=== PATIENT | female | born 1970 | race Caucasian/White ===

== ENCOUNTER 2023-04-15 08:45 | Outpatient (CLI) | payer OTHER, SELFPAY ==
--- OUTSIDE RECORDS SUMMARY | 2023-04-16 11:33 | XMS_ITS ---
Author Name Unknown Organization [facility] Address [address] [place] [address] Care Team Providers Care It Network Administrator Name Role Phone Unavailable Unavailable Unavailable Surgery Details Not on file Complications Check Surgery Details section. Procedure Estimated Blood Loss Check Surgery Details section. Procedure Findings Check Surgery Details section. Procedure Specimens Taken Check Surgery Details section.
--- OUTSIDE RECORDS SUMMARY | 2023-04-16 11:33 | XMS_ITS | Encounter Summary ---
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 [address] [place] [address] [facility] Referral ID Status Reason Start Date Expiration Date Visits Re quested Visits Authorized [id number] Closed 12/20/2022 12/20/2023 1 1 Encounter Details Date Type Department Care Team (Latest Contact Info) Description 01/21/2023 8:00 AM CDT Procedure visit Division of Pain Medicine in [place], [place] [address] [place] [phone] Bhupendra Alvarez M.D. [address] [place] [phone] Yesenia Dunbar, R.N. 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 No 09/02/2022 Within the last year, have y ou been humiliated or emotionally abused in other ways by your partner or ex-partner? No Within the last year, have y ou been kicked, hit, slapped, or otherwise physically hurt by your partner or ex-partner? No 09/02/2022 Within the last year, have y ou been raped or forced to have any kind of sexual activity by your partner or ex-partner? No 09/02/2022 Social Connection and Isolat ion Panel [NHANES] Answer Date Recorded In a typical week, how many times do you talk on the phone with family, friends, or neighbors? More than three times a week 12/17/2021 How often do you get togethe r with friends or relatives? Once a week 12/17/2021 How often do you attend chur or cheondoism services? 1 to 4 times per year 12/17/2021 Do you belong to any clubs o r organizations such as roman catholic groups, unions, fraternal or athletic groups, or school groups? Yes 12/17/2021 How often do you attend meet ings of the clubs or organizations you belong to? More than 4 times per year 12/17/2021 Are you , , di vorced, , never , or living with a partner? 12/17/2021 AUDIT-C Answer Date Recorded Q1: How often do you have a drink containing alc ohol? Never 12/17/2021 Average Number of Drinks Not on file 022 Frequency of Binge Drinking Not on file 11/23 Overall Financial Resource Strain (CARDIA) Answe r Date Recorded How hard is it for you to pa y for the very basics like food, housing, medical care, and heating? Not hard at all 01/21/2023 [facility] of Occupat ional Health - Occupational Stress Questionnaire Answer Date Recorded Do you feel stress - tense, restless, nervous, or anxious, or unable to sleep at night because your mind is troubled all the time - these days? To some extent 12/17/2021 Exercise Vital Sign Answer Date Recorde d On average, how many days pe r week do you engage in moderate to strenuous exercise (like a brisk walk)? 5 days 01/21/2023 On average, how many minutes do you engage in exercise at this level? 20 min 01/21/2023 Hunger Vital Sign Answer Date Recorded Within the past 12 months, y ou worried that your food would run out before you got the money to buy more. Never true 01/22/20 23 Within the past 12 months, t he food you bought just didn't last and you didn't have money to get more. Never true 01/21/2023 PRAPARE - Transportation Answer Date Re corded In the past 12 months, has l ack of transportation kept you from medical appointments or from getting medications? No 12/24 In the past 12 months, has l ack of transportation kept you from meetings, work, or from getting things needed for daily living? No 01/21/2023 Nutrition Answer Date Recorded Nutrition: EVOO Fat Source Yes 01/21 On average, how many serving s of fruits and vegetables do you eat per day (serving size is equal to 1 cup or approximately the size of a tennis ball)? 0-2 01/21/2023 Dental Answer Date Recorded Dental: Regular Dentist Yes 12/18/19 Employment Answer Date Recorded Employment status Temporarily disabled Housing Stability Answer Date Recorded What is your living situation today? I have a [facility] place to live 01/21/2023 Education Answer Date Recorded What is the highest level of school you have completed or the highest degree you have received? Some college, no degree 12/17/2021 Sex and Gender Information Value Date Recorded Sex Assigned at Female 01/16/2018 8:35 AM CDT Gender Identity Female 01/16/2018 8:35 AM CDT Sexual Orientation Straight 01/16/2018 8: 35 AM CDT documented as of this encounter Last Filed Vital Signs Vital Sign Reading Time Taken Comments Blood Pressure 133/91 01/21/2023 8:20 AM CDT Pulse 89 01/21/2023 8:20 AM CDT Temperature 36.5 ??C (97.7 ??F) 01/21/2023 8:20 AM CD T Respiratory Rate - - Oxygen Saturation - - Inhaled Oxygen Concentration - - Weight - - Height - - Body Mass Index - - documented in this encounter Progress Notes * Yesenia Dunbar R.N. - 01/21/2023 8:00 AM CDT PAIN CLINIC PROVIDER: Dr. Escobar PRIMARY IDENTIFIED PAIN AREA FOR NEUROMODULATION: bilateral feet neuropathic pain PERTINENT SURGICAL HISTORY: Suma Damon has a past surgical history that includes Nevro Trial Stimulator Spinal Cord (Posterior, 05/30/2022); and Nevro Implant Stimulator Spinal Cord (N/A, 07/29/2022). PAIN ASSESSMENT Patient reports that chronic pain is typically Pain 0-10: 10/10. With stimulation currently pain is Pain 0-10: 0/10. FUNCTIONAL GOALS 1) Sleep 7 hours without pain interference (before stim 5 hours interrupted multiple times by her pain) - 6 hours with no sleep interruptions due to pain 2) Sit 45 minutes without pain interference (before stim, 0 minutes) - doesn't make it spasm - not an issue 3) Stand 30 minutes without pain interference (before stim, 0 minutes) - 30 minutes 4) Walk 30 minutes without pain interference (before stim, 0 minutes) - 20 minutes 5) Recovery time of 60 minutes after activity (before stim, never recover) - 15 minutes EVALUATION OF IMPLANT Patient notes a 95% improvement in pain, and 95% improvement in functionality. Mr. Damon requested recommendations on when to determine a programming change would be needed. He noted her pain flares, and he stated pain is still significantly better when increased. They were unable to provide a percent of improvement during the flares as Mrs. Damon has become normalized tothe reduction of pain. She stated this makes it difficult to evaluate pain when flared. When it flares, it lasts for a few days before seeing improvement on the same program setting. It was reviewed that chronic pain can have multiple factors that increase the pain and cause pain flares (weather changes, activity levels, anxiety, etc.), and chronic pain ebbs and flows. With stimulation, this is expected as it is not a cure to remove all pain. It was reviewed that 50% improvement is a success. In the future, it was recommended to consider overall percent relief when compared to before stimulation when a flare occurs. If the decrease of pain is significant (50% or less) and lasts more than 4 days, Mrs. Damon should contact the Pain Clinic for recommendations. and Mrs. Damon verbalized understanding and agreement with the above plan. PROGRAMMING Ok ELVIN Diaz healthcare representative was present for analysis and impedance check of neurostimulator. Programming and remote use were reviewed with patient. The following changes were made to patient's stimulation programming: Minor changes to fine tune programming for future recommendations. Parameters addressed: *Amplitude - no *Electrode Array - no *Pulse Width - no *Rate - no New programming was reviewed with patient. Mrs. Damon left today's appointment P3, 3L. It was reviewed that it would take an extreme event (fall, vehicle accident) for the leads to migrate. Mrs. Damon requested information on getting massages. Ok recommended to stay above the vertical incision and below the horizontal incision. An opportunity for questions was provided, and Mrs. Damon and Mr. Damon denied having any at thistime. FOLLOW UP Mrs. Damno will contact the Pain Clinic with future questions or concerns. Disposition/Recommendation: self-care appropriate at this time. The following references were used: nursing clinical judgement VISIT OUTCOME: Learner(s): Suma Damon Readiness to learn: Accepting Methods used for education: Explanation Learner(s) response: Patient/caregiver able to teach back If there are any ongoing questions or concerns Suma Damon will call the Pain Clinic RN coordinators at [phone]. Reviewed with Dr. Escobar. 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
--- OUTSIDE RECORDS SUMMARY | 2023-04-16 11:33 | XMS_ITS | Referral Summary ---
Author Name Unknown Organization [facility] Address [address] [place] [id number] Care Team Providers Care Manager Utility Name Role Phone Unavailable Primary Care Provider Unavailabl e Source Comments Patient records contain information from all sites at [facility]. For routine questions regarding patient records, call [phone] during business hours, M-F 8:00 AM - 5:00 PM Central Time. Record requests for emergency care only can be directed to [phone] at any time.[facility] Encounters Date Type Department Care Team Description 01/21/2023 8:00 AM CDT Procedure visit Division of Pain Medicine in [place], [place] [address] [place] [phone] Bhupendra Alvarez M.D. Yesenai Dunbar, R.N. 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 from Last 3 Months Allergies Active Allergy Reactions Criticality Noted Date Comments Gadolinium-Containing Contrast Media GI intolerance 12/24/2000 Extreme diarrhea Medications Medication Sig Dispensed Refills Start Date End Date Status atenolol (TENORMIN) 50 mg tablet Take 50 mg by mouth daily. 3 11/04/2017 Active lisinopril (PRINIVIL,ZESTRIL) 10 mg tablet lisinopril 10 mg tablet 0 Active calcium carbonate-vitamin D3 500 mg-10 mcg (400 unit) tablet Take by mouth. 0 Active fish oil 1,000 mg capsule Take 1,000 mg by mouth daily. 0 Active glucosamine sulfate (GLUCOSAMINE) 500 mg capsule Take 1,000 mg by mouth daily. 0 Active magnesium oxide (MAG-OX) 400 mg (241.3 mg magnesium) tablet Take by mouth every morning before breakfast. 0 Active cyanocobalamin (VITAMIN B12) 1,000 mcg tablet Take 1,000 mcg by mouth daily. 0 Active multivitamin (MULTIPLE VITAMINS ORAL) 0 Active UNABLE TO FIND Ubiquinal - 100mg 0 Act eugenio UNABLE TO FIND Adri - 500mg 0 Active gabapentin (NEURONTIN) 600 mg tablet gabapentin 600 mg tablet TAKE 1 TABLET BY MOUTH 4 TIMES A DAY 0 Active DULoxetine (CYMBALTA) [address] capsule Take 60 mg by mouth daily. Takes 90 mg total once per day 0 Active DULoxetine (CYMBALTA) [address] capsule Take 30 mg by mouth daily. 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 1 to 4 times per year 12/17/2021 Do you belong to any clubs o r organizations such as yarsanism groups, unions, fraternal or athletic groups, or [...] and heating? Not hard at all 01/21/2023 [facility] of Occupat ional Health - Occupational Stress [...] your living situation today? I have a [facility] place to live 01/21/2023 Education Answer Date Recorded What is the highest level of school you have completed or the highest degree you have received? Some college, no degree 12/17/2021 Sex and Gender Information Value Date Recorded Sex Assigned at Female 01/16/2018 8:35 AM CDT Gender Identity Female 01/16/2018 8:35 AM CDT Sexual Orientation Straight 01/16/2018 8: 35 AM CDT Last Filed Vital Signs Vital Sign Reading Time Taken Comments Blood Pressure 133/91 01/21/2023 8:20 AM CDT Pulse 89 01/21/2023 8:20 AM CDT Temperature 36.5 ??C (97.7 ??F) 01/21/2023 8:20 AM CD T Respiratory Rate 21 07/29/2022 12:40 PM CDT Oxygen Saturation 94% 07/29/2022 12:40 PM CDT Inhaled Oxygen Concentration - - Weight 93 kg (205 lb 0.4 oz) 08/08/2022 12:47 PM CDT Height 167.7 cm (5' 6.02) 08/08/2022 12:47 PM C DT Body Mass Index 33.07 08/08/2022 12:47 PM CDT Plan of Treatment Not on file Medical Devices Implanted Type Area Explosive Ordnance Handler Device Identifier Shelf Expiration Date Model / Serial / Lot Ipg Kit Implanted:Qty : 1 on 07/29/2022 by Ciaran Escobar M.D. at [facility] Misc Other Right: Back Nevro 01/22/2025 [id number] / / [id number] Kt Lead Trl Spnl 70x5 - Sna - [id number] Implanted:Qty : 1 on 07/29/2022 by Ciaran Escobar M.D. at [facility] Spinal Cord Stimulator N/A: Back Nevro 04/23/2025 [id number] / NA / [id number] Kt Neurostm Swf-L 2.3 - Sna - [id number] Implanted:Qty : 1 on 07/29/2022 by Ciaran Escobar M.D. at [facility] Spine Implant N/A: Back Nevro 03/23/2025 [id number] / NA / [id number] Explanted Type Area Explosive Ordnance Handler Device Identifier Shelf Expiration Date Model / Serial / Lot Kt Nrv Stm Ld Perq 50x5 - Sna - [id number] Implanted:Qty : 1 on 05/30/2022 by Sumi Christine M.D. at [facility] Explanted:Qty : 1 on 06/06/2022 by Svetlana Holley, R.N. Spinal Cord Stimulator Posterio r: Back Nevro 01/21/2025 [id number] / NA / [id number]
--- OUTSIDE RECORDS SUMMARY | 2023-04-16 11:33 | XMS_ITS | Clinical Summary ---
Author Name Unknown Organization [facility] Address [address] [place] [address] Care Team Providers Care Police Inspector Name Role Phone Unavailable Primary Care Provider Unavailabl e Source Comments Patient records contain information from all sites at [facility]. For routine questions regarding patient records, call [phone] during business hours, M-F 8:00 AM - 5:00 PM Central Time. 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 Lundstrom, Laura B, R.N. 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 from Last 3 Months Family History Medical History Relation Name Comments Diabetes Brother piyush cone Arthritis Father ravi cone Colon polyps Father ravi cone Osteoporosis Father ravi cone Hypertension Mother emre cone Skin cancer Mother emre cone Diabetes Sister 1 aneesh jeremie Diabetes Sister 2 lisle shocker Diabetes Sister 3 jay cone Skin cancer Sister 3 jay cone Relation Name Status Comments Brother piyush cone Father ravi cone Mother emre cone Sister 1 aneesh jeremie Sister 2 lisle shocker Sister 3 jay cone Social History Tobacco Use Types Packs/Day Years [...] How often do you attend chur or yarsani services? 1 to 4 times per year 12/17/2021 Do you belong to any clubs o r organizations such as zoroastrian groups, unions, fraternal or athletic groups, or [...] and heating? Not hard at all 01/21/2023 [facility] of Occupat ional Health - Occupational Stress [...] your living situation today? I have a [facility] place to live 01/21/2023 Education Answer [...] 08/08/2022 12:47 PM CDT Plan of Treatment Health Maintenance Due Date Last Done Comments CT Colonography 1972 Cervical Cancer Screening 1972 Cologuard 1972 Colonoscopy 1972 Colorectal Cancer Screening 1972 FIT 1972 HIV Screening 1972 Hepatitis B Vaccines (1 of 3 - 3-dose series) 1972 Hepatitis C Screening 1972 Lipid (Cholesterol) Screening 1972 Mammogram 1972 Creatinine Level (Kidney Function Test) 01/15/2019 01/15/2018 Potassium Level 01/15/2019 01/15/2018 Sodium Level 01/15/2019 01/15/2018 DTaP,Tdap,and Td Vaccines (1 - Tdap) 01/04/2021 01/03/2021, 03/24/2005 Fasting Glucose for Diabetes Screening 01/15/2021 01/15/2018, 01/15/2018 Zoster Vaccines (1 of 2) 2022 COVID-19 Vaccine (2 - 2022-2 4 season) 2022 05/29/2020 Influenza Vaccine (#1) 2022 01/03/2021 Depression Screening (Annual PHQ-2) 03/24/2023 Pneumococcal vaccine (0-64 years) Aged Out No longer eligible b ased on patient's age to complete this topic Medical Devices Implanted Type Area Digital Editor Device Identifier Shelf Expiration Date Model / Serial / Lot Ipg Kit Implanted:Qty : 1 on 07/29/2022 by Ciaran Escobar M.D. at [facility] Other Right: Back Nevro 01/22/2025 [id number] / / [id number] Kt Lead Trl Spnl 70x5 - Sna - [id number] Implanted:Qty : 1 on 07/29/2022 by Ciaran Escobar M.D. at [facility] Spinal Cord Stimulator N/A: Back Nevro 04/23/2025 [id number] / NA / [id number] Kt Neurostm Swf-L 2.3 - Sna - [id number] Implanted:Qty : 1 on 07/29/2022 by Ciaran Escobar M.D. at [facility] Spine Implant N/A: Back Nevro 03/23/2025 [id number] / NA / [id number] Explanted Type Area Digital Editor Device Identifier Shelf Expiration Date Model / Serial / Lot Kt Nrv Stm Ld Perq 50x5 - Sna - [id number] Implanted:Qty : 1 on 05/30/2022 by Sumi Christine M.D. at [facility] Explanted:Qty : 1 on 06/06/2022 by Svetlana Holley, RStephanN. Spinal Cord Stimulator Posterio r: Back Nevro 01/21/2025 [id number] / NA / [id number]
--- OUTSIDE RECORDS SUMMARY | 2023-04-16 11:34 | XMS_ITS | Encounter Summary ---
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 [facility] Referral ID Status Reason Start Date Expiration Date Visits Re quested Visits Authorized [id number] Closed 07/02/2022 07/02/2023 1 1 Encounter Details Date Type Department Care Team (Latest Contact Info) Description 08/08/2022 1:00 PM CDT Procedure visit Division of Pain Medicine in [place], [place] [address] [place] [address] Cam Bolaños M.D. Lundstrom, Laura B, R.N. Polyneuropathy Due [...] afraid of your partner or ex-partner? No 12/17/2021 Within the last year, have y ou been humiliated or emotionally abused in other ways by your partner or ex-partner? No Within the last year, have y ou been kicked, hit, slapped, or otherwise physically hurt by your partner or ex-partner? No 12/17/2021 Within the last year, have y ou been raped or forced to have any kind of sexual activity by your partner or ex-partner? No 12/17/2021 Social Connection and Isolat ion Panel [NHANES] Answer Date Recorded In a typical week, how many times do you talk on the phone with family, friends, or neighbors? More than three times a week 12/17/2021 How often do you get togethe r with friends or relatives? Once a week 12/17/2021 How often do you attend chur or zoroastrian services? 1 to 4 times per year 12/17/2021 Do you belong to any clubs o r organizations such as amish groups, unions, fraternal or athletic groups, or [...] care, and heating? Not hard at all 12/17/2021 [facility] of Occupat ional Health - Occupational Stress [...] to strenuous exercise (like a brisk walk)? 4 days 12/17/2021 On average, how many minutes do you engage in exercise at this level? 30 min 12/17/2021 Hunger Vital Sign Answer Date Recorded Within the past 12 months, y ou worried that your food would run out before you got the money to buy more. Never true 12/18/19 Within the past 12 months, t he food you bought just didn't last and you didn't have money to get more. Never true 12/17/2021 PRAPARE - Transportation Answer Date Re corded In the past 12 months, has l ack of transportation kept you from medical appointments or from getting medications? No 11/23 In the past 12 months, has l ack of transportation kept you from meetings, work, or from getting things needed for daily living? No 12/17/2021 Housing Stability Vital Sign Answer Ayo e Recorded In the last 12 months, was t here a time when you were not able to pay the mortgage or rent on time? No 12/17/2021 In the last 12 months, how many places have you lived? 1 12/17/2021 In the last 12 months, was t here a time when you did not have a steady place to sleep or slept in a chcf (including now)? No 12/17/2021 Nutrition Answer Date Recorded Nutrition: EVOO Fat Source Yes 12/17 On average, how many serving s of fruits and vegetables do you eat per day (serving size is equal to 1 cup or approximately the size of a tennis ball)? 4-5 12/17/2021 Dental Answer Date Recorded Dental: Regular Dentist Yes 12/18/19 Employment Answer Date Recorded Employment status Unemployed/not in th e paid workforce and NOT seeking employment 12/17/2021 Education Answer Date Recorded What is the [...] Sign Reading Time Taken Comments Blood Pressure 121/77 08/08/2022 12:47 PM CDT Pulse 80 08/08/2022 12:47 PM CDT Temperature - - Respiratory Rate - - Oxygen Saturation - - Inhaled Oxygen Concentration - - Weight 93 kg (205 lb 0.4 oz) 08/08/2022 12:47 PM CDT Height 167.7 cm (5' 6.02) 08/08/2022 12:47 PM C DT Body Mass Index 33.07 08/08/2022 12:47 PM CDT documented in this encounter Progress Notes * Yesenia Dunbar, R.N. - 08/08/2022 1:00 PM CDT PAIN CLINIC PROVIDER: Dr. Escobar PRIMARY IDENTIFIED PAIN AREA FOR NEUROMODULATION: bilateral feet neuropathic pain PERTINENT SURGICAL HISTORY: Suma Damon has a past surgical history that includes Nevro Trial Stimulator Spinal Cord (Posterior, 05/30/2022); and Nevro Implant Stimulator Spinal Cord (N/A, 07/29/2022). Suma Damon presents days post op: 10 and 14 after implant of neurostimulator. PAIN ASSESSMENT Patient reports that chronic pain is typically Pain 0-10: 10/10. With stimulation currently pain is Pain 0-10: 5/10. Patient reports that procedural pain is Pain 0-10: 0/10. FUNCTIONAL GOALS 1) Sleep 7 hours without pain interference (before stim 5 hours interrupted multiple times by her pain) - overall she gets 4-6 hours of sleep with 2-3 interruptions due to pain 2) Sit 45 minutes without pain interference (before stim, 0 minutes) - 10 minutes 3) Stand 30 minutes without pain interference (before stim, 0 minutes) - 5 minutes 4) Walk 30 minutes without pain interference (before stim, 0 minutes) - 5 minutes 5) Recovery time of 60 minutes after activity (before stim, never recover) - 60 minutes EVALUATION OF IMPLANT Patient notes a 30% improvement in pain, and 10% improvement in functionality. It was stated the results from the x-ray completed on 08/08/22 reported lead migration. Elvin Quiros, explained the current location of the leads can still be programmed to target the chronic pain. He reported the leads moved on 07/31/22, which corresponds to when the patient lost relief per the patient. PROGRAMMING ELVIN Quiros motor vehicle field representative was present for analysis and impedance check of neurostimulator. Programming, charging and remote use were reviewed with patient. Programming adjustments: Electrode array was adjusted of the programs to better target the chronic pain. Parameters addressed: *Amplitude - no *Electrode Array - yes *Pulse Width - no *Rate - no Mrs. Damon left today's appointment on P1, 4L. A programming schedule will be provided to the patient through a portal message. Mrs. Damon will follow the instructions and provide updates as needed. Weeks 2-6 after implant: Activity Restrictions You may drive, lift up to 10 pounds, and raise your arms above your head Continue to refrain from bending and twisting, and vigorous activities (examples: weight lifting, biking, running, sexual activity, etc.) Infection Prevention Signs/symptoms: worsening pain, redness, swelling, temperature greater than 100.4F, yellow/green ormalodorous drainage from incisions If any of the above are identified, call the Pain Clinic Nurse Contact Number or ???Anesthesia PainOutpatient Adult Doctor on-call?? via the [facility] Research Archaeologist (phone: [phone]) INCISION ASSESSMENT Upon inspection dressing was intact with no drainage. No signs of infection including redness, warmth, swelling or purulent drainage noted at this time. PROCEDURE Upon inspection, generator pocket and spinal incision were noted to be clean, dry and intact with surgical glue approximating margins. Steri-Strips were removed without incident. Monocryl tag sutureswere trimmed and retracted completely below the surface of the skin. RN reviewed that dressing changes are no longer needed. Mrs. Damon requested a PT order as she desires to work on her gait. This request will be provided to a provider. If it is ordered, she requests a paper copy to be mailed to her home address so that she can complete locally. An opportunity for questions was provided, and they were answered to the best of my ability. Mrs. Damon will contact the Pain Clinic for future questions and concerns. FOLLOW UP RN will follow up with patient 6 weeks post implant in a phone call. Disposition/Recommendation: self-care appropriate at this time. The following references were used: nursing clinical judgement VISIT OUTCOME: Learner(s): Suma Damon Readiness to learn: Accepting Methods used for education: Explanation Learner(s) response: Patient/caregiver able to teach back If there are any ongoing questions or concerns Suma Damon will call the Pain Clinic RN coordinators at [phone]. Reviewed with Dr. Escobar. 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
--- OUTSIDE RECORDS SUMMARY | 2023-04-16 11:34 | XMS_ITS | Encounter Summary ---
Author Name Unknown Organization [facility] Address [address] [place] [address] Care Team Providers Care Senior Coldfusion Developer Name Role Phone Unavailable Primary Care Provider Unavailabl e Encounter Details Date Type Department Care Team (Late st Contact Info) Description 07/29/2022 Orders Only Division of Pain Medicine in [place], [place] [address] [place] [address] Cam Bolaños M.D. Social History Tobacco Use Types Packs/Day Years [...] 12/17/2021 How often do you attend chur ch or hinduism services? 1 to 4 times per year 12/17/2021 Do you belong to any clubs o r organizations such as restorationist groups, unions, fraternal or athletic groups, or [...] and heating? Not hard at all 12/17/2021 [facility] of Occupat ional Health - Occupational Stress [...] money to buy more. Never true 12/18/19 22 Within the past 12 months, t he [...] place to sleep or slept in a snf (including now)? No 12/17/2021 Nutrition Answer Date [...] AM CDT documented as of this encounter Plan of Treatment Not on file documented as of this encounter Visit Diagnoses Not on filedocumented in this encounter
--- OUTSIDE RECORDS SUMMARY | 2023-04-16 11:34 | XMS_ITS | Encounter Summary ---
Author Name Unknown Organization [facility] Address [address] [place] [address] Care Team Providers Care Log Clerk Name Role Phone Unavailable Primary Care Provider Unavailabl e Reason for Visit * Reason Onset Date Comments Elijah [facility] update 08/30/2022 Encounter Details Date Type Department Care Team (Latest Contact Info) Description 08/30/2022 Clinical Communication Division of Pain Medicine in [place], [place] [address] [place] [address] Ciaran Escobar M.D. [address] [place] [address] Kurtisro [facility] update Social History Tobacco Use Types Packs/Day Years [...] often do you attend chur ch or orthodox services? 1 to 4 times per year 12/17/2021 Do you belong to any clubs o r organizations such as buddhist groups, unions, fraternal or athletic groups, or [...] and heating? Not hard at all 12/17/2021 [facility] [place] of Occupat ional Health - Occupational Stress [...] place to sleep or slept in a skilled nursing (including now)? No 12/17/2021 Nutrition Answer Date [...] AM CDT documented as of this encounter Miscellaneous Notes * Telephone Encounter - Suma Cochran, R.N. - 08/30/2022 8:32 AM CDT Received the following update via secure email from Elijah Quiros: I spoke with Jaclynel patient Samy PAZ 1970, below are the details: -Patient on P1, 7L -Reporting a noticeable, but marginal, improvement in pain -Patient has reduced cannabis dose to sleep which is an improvement -Advised patient to switch to P2 and follow the below schedule (please send to patient at your earliest convenience) -Patient on G6, P2, 4L Schedule: *Do not work past pain relief. When you notice an increase in relief, discontinue schedule and reach out to [place]. 08/29 - P2, 4L 09/03 - P2, 5L 09/08 - P2, 6L 09/13 - P2, 7L 09/18 - Report back on response to P2 documented in this encounter Plan of Treatment Not on file documented as of this encounter Visit Diagnoses Not on filedocumented in this encounter
--- OUTSIDE RECORDS SUMMARY | 2023-04-16 11:34 | XMS_ITS | Encounter Summary ---
Author Name Unknown Organization [facility] Address [address] [place] [address] Care Team Providers Care Planer Stone Name Role Phone Unavailable Primary Care Provider Unavailabl e Encounter Details Date Type Department Care Team (Late st Contact Info) Description 01/14/2023 Documentation Division of Pain Medicine in [place], [place] [address] [place] [address] Yesenia Dunbar, R.N. Social History Tobacco Use Types Packs/Day Years [...] often do you attend chur ch or episcopal services? 1 to 4 times per year 12/17/2021 Do you belong to any clubs o r organizations such as mormonism groups, unions, fraternal or athletic groups, or [...] care, and heating? Not hard at all 09/02/2022 [facility] of Occupat ional [facility] - Occupational Stress Questionnaire Answer Date Recorded [...] the money to buy more. Never true 09/03/19 23 Within the past 12 months, t he food you bought just didn't last and you didn't have money to get more. Never true 09/02/2022 PRAPARE - Transportation Answer Date Re corded In the past 12 months, has l ack of transportation kept you from medical appointments or from getting medications? No 08/22 In the past 12 months, has l ack of transportation kept you from meetings, work, or from getting things needed for daily living? No 09/02/2022 Nutrition Answer Date Recorded Nutrition: EVOO Fat Source Yes 12/17 On average, how many serving s of fruits and vegetables do you eat per day (serving size is equal to 1 cup or approximately the size of a tennis ball)? 4-5 12/17/2021 Dental Answer Date Recorded Dental: Regular Dentist Yes 12/18/19 Employment Answer Date Recorded Employment status Unemployed/not in e paid workforce and NOT seeking employment 12/17/2021 Housing Stability Answer Date Recorded What is your living situation today? [facility] to [facility] 09/02/2022 Education Answer Date Recorded What is the highest level of school you have completed or the highest degree you have received? Some college, no degree 12/17/2021 Sex and Gender Information Value Date Recorded Sex Assigned at Female 01/16/2018 8:35 AM CDT Gender Identity Female 01/16/2018 8:35 AM CDT Sexual Orientation Straight 01/16/2018 8: 35 AM CDT documented as of this encounter Progress Notes * Yesenia Dunbar, R.N. - 01/14/2023 9:52 AM CDT Email from Elijah Quiros, after phone contact with Mrs. Damon on 01/10/23: I spoke with Luz patient Samy PAZ 74, below are the details: Patient on G7, P3, 1L Reporting that she had great relief G7, P3, 4L for 3 weeks before losing it. Patient was previously instructed to reduce stimulation to evaluate for STS 3L did offer an increase in relief but this relief was short lived. As she continued to reduce stimulation she did not note an improvement. Explained to patient that she may need a setting in between 3 and 4 light on P3 in order to offer abalance with her nervous system, however, nothing is currently programmed in. Patient is returning to clinic on 01/21 at which point we will give her intermediary settings and also a lower bipole on the lead, which is also not currently available. Patient will return to G7, P3, 3L and hold for 72 hours to evaluate for an improvement in pain. documented in this encounter Plan of Treatment Not on file documented as of this encounter Visit Diagnoses Not on filedocumented in this encounter
--- OUTSIDE RECORDS SUMMARY | 2023-04-16 11:34 | XMS_ITS | Encounter Summary ---
Author Name Unknown Organization [facility] Address [address] [place] [id number] Care Team Providers Care Day Spa Manager Name Role Phone Unavailable Primary Care Provider Unavailabl e Reason for Visit * Auth/Cert (Routine) Specialty Diagnoses / Procedures Referred By Valerie t Referred To Contact Diagnoses Neuralgia and neuritis, unspecified intractable pain Procedures WI IMPL NEUROSTIM ELEC PERC EPI WI INS/RPLC SPINAL NS GEN/REC NEVRO IMPLANT STIMULATOR SPINAL CORD Referral ID Status Reason Start Date Expiration Date Visits Re quested Visits Authorized [id number] 1 1 Encounter Details Date Type Department Care Team (Late st Contact Info) Description 07/29/2022 8:15 AM CDT - 07/29/2022 10:39 AM CDT [facility] in [place], [place] [address] [place] [phone] Ciaran Escobar M.D. [address] [place] [phone] NEVRO IMPLANT STIMULATOR SPINAL CORD, CIPN Study. Social History Tobacco Use Types Packs/Day Years [...] often do you attend chur ch or holiness services? 1 to 4 times per year [...] and heating? Not hard at all 12/17/2021 [facility] - [...] place to sleep or slept in a detention (including now)? 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 - 07/29/2022 7:22 AM CDT Neuromodulation Implant or Revision Instructions Day 0-Week 2 after implant: Activity Restrictions Refrain from intense physical activity after the implant procedure (examples: weight lifting, biking, running, sexual activity, etc.) Specific restrictions: Do not drive Do not lift over 5 pounds Do not raise your arms above your head Avoid bending and twisting at the waist more than 30 degrees Infection Prevention Take antibiotics as prescribed by your surgical team Do not remove dressings for 48 hours, then change dressings daily until your next follow-up visit Remove dressings before shower, pat incisions dry afterwards, allow to air dry, and replace the dressings (gauze and tape - provided by nurse). If changing dressings without showering, wash hands thoroughly before removing and replacing No showers until 48 hours post-procedure Do not completely submerge incisions under water until after 14 days (includes baths, hot tubs, andswimming in pools or lakes/oceans) Monitor incisions for signs of infection: Signs/symptoms: worsening pain, redness, swelling, temperature greater than 100.4F, yellow/green ormalodorous drainage from incisions If any of the above are identified, call the Pain Clinic Nurse Contact Number or ???Anesthesia PainOutpatient Adult Doctor on-call?? via the [facility] (phone: [phone]) Pain Control Your surgeon may provide you with approximately three days of pain medications Use ice packs 20 minutes on/off as needed Follow-Up Return to Pain Clinic (or your local provider if traveling from a distance) on post-op day 10-14 toinspect incisions and remove sutures or millie, if present. This visit will be scheduled for you by your surgical team. Weeks 2-6 after implant: Activity Restrictions You may drive, lift up to 10 pounds, and raise your arms above your head Continue to refrain from bending and twisting, and vigorous activities (same as above) Infection Prevention Continue to monitor your incisions for signs/symptoms of infection (same as above) Weeks 6-12 after implant: Activity Restrictions You may return to most normal daily activities Refrain from high-impact activities such as jogging, horseback riding, riding all-terrain vehicles,etc. until 3 months after your permanent implant date Please continue to be mindful that extreme twisting of your spinal column can put your stimulator leads at risk of movement which could affect your stimulation Infection Prevention Continue to monitor your incisions for signs/symptoms of infection (same as above) documented in this encounter Medications at Time of Discharge Medication Sig Dispensed Refills Start Date End Date atenolol (TENORMIN) 50 mg tablet Take 50 mg by mouth daily. 3 11/04/2017 calcium carbonate-vitamin D3 500 mg-10 mcg (400 unit) tablet Take by mouth. 0 cyanocobalamin (VITAMIN B12) 1,000 mcg tablet Take 1,000 mcg by mouth daily. 0 DULoxetine (CYMBALTA) [address] capsule Take 30 mg by mouth daily. 0 DULoxetine (CYMBALTA) [address] capsule Take 60 mg by mouth daily. Takes 90 mg total once per day 0 fish oil 1,000 mg capsule Take 1,000 mg by mouth daily. 0 gabapentin (NEURONTIN) 600 mg tablet gabapentin 600 mg tablet TAKE 1 TABLET BY MOUTH 4 TIMES A DAY 0 glucosamine sulfate (GLUCOSAMINE) 500 mg capsule Take 1,000 mg by mouth daily. 0 lisinopril (PRINIVIL,ZESTRIL) 10 mg tablet lisinopril 10 mg tablet 0 magnesium oxide (MAG-OX) 400 mg (241.3 mg magnesium) tablet Take by mouth every morning before breakfast. 0 multivitamin (MULTIPLE VITAMINS ORAL) 0 UNABLE TO FIND Ubiquinal - 100mg 0 UNABLE TO FIND Adri - 500mg 0 cefadroxil (DURICEF) 500 mg capsule Take 1 capsule (500 mg total) by mouth 2 (two) times a day. 14 capsule 0 07/29/2022 10/29/2022 oxyCODONE (ROXICODONE) 5 mg immediate release tabletIndications:Acu te Pain Take 1 tablet (5 mg total) by mouth every 4 (four) hours as needed for pain Indication: Acute Pain. 12 tablet 0 07/29/2022 10/29/2022 documented as of this encounter OR Notes * Op Note - Cam Bolaños M.D. - 07/29/2022 8:43 AM CDT Pre-op Diagnosis Neuropathy Peripheral Post-op Diagnosis Neuropathy Peripheral Findings As expected. Complications Operative Note Narrative Spinal Cord Stimulator Implant Dr. Escobar is the supervisory physician and was present for the entirety of this operation. Fluoroscopic images were saved in IntercastingEADs. The patient was identified and evaluated in the preoperative holding area. Risks, benefits, alternatives and team approach were discussed, and the pertinent surgical site was verified and marked withinitials. The patient had an opportunity to ask questions, and wished to proceed. The patient was transported to the operating room and appropriate anesthetic care was provided. Thepatient was carefully positioned prone, avoiding all pressure points. The patient was then prepped and draped in usual sterile fashion. A procedural pause was then conducted. Under fluoroscopic guidance, the T11-12 interspace was identified. Additionally, the skin entry site was identified at the medial border of the pedicle one vertebral level lower and a jose d was placedon the overlying skin. An incision was planned to incorporate the skin entry site and marked with askin marker. Skin and subcutaneous tissues were anesthetized with local anesthetic. An incision wasthen created and blunt dissection was carried out to the level of the paraspinal fascia. Slight undermining of the medial and lateral borders of the incision was completed. The monitored anesthetic was then lightened allowing the patient to communicate clearly. Utilizing intermittent fluoroscopy, an epidural needle was then advanced through the incision toward the interlaminar space via a paramedian approach at the left T11-12 interspace using a [id number] technique. The stimulator leadwas advanced without difficulty to the posterior epidural space to the top of T8. A second epiduralneedle was placed at the left T11-12 Interspace using the exact technique described above with the tip located at the T8-9 disc space. Monitored anesthesia was again deepened to ensure patient comfort. With the epidural needles still in place, a suture was placed both medial and lateral to each needle fascial entry point. The epidural needles and stylettes were withdrawn under direct visualization without movement of the leads. An anchor was placed over each spinal cord stimulating lead and inserted into the fascia and fixed with surgical square knots. The anchor was then fixed to the lead. A pocket was created ensuring an appropriate distance from any osseous protuberances. The overlyingskin was first anesthetized with the local anesthetic solution, and a skin incision was created. Blunt dissection was utilized to create a pocket large enough to house the impulse generator. Next a tunneling device was used to connect the two incisions, and the leads were advanced through the tunneler, leaving a small strain relief loop in the midline incision. Both pocket sites were copiously irrigated and hemostasis was assured. The leads were then placed into the pulse generator and the screws tightened to an audible click. The leads were wound behind the generator and placed into the incision with additives noted below. The impedence of this device was checked and found to be appropriate. Both incisions were closed in anatomic layers. A sterile bio-occlusive dressing was applied to each wound. The patient tolerated the procedure well without evidence of complication. Technical Details Skin Preparation: Chlorhexidine Local anesthetic: 1:1 mixture of 1% lidocaine and 0.5% bupivacaine with 1:200,000 epinephrine [place] used: Vendor provided anchor [place] suture: Ethibond IPG Pocket location: Right flank Incision treatments: DABs Deep Closure: 2-0 Vicryl Skin Closure: 4-0 Vicryl and Dermabond Intra-operative Medications Intra-op Medications Date/Time Order Dose Route Action Action by 07/29/2022 0830 CDT ceFAZolin injection 2 g (ANCEF) 2 g intravenous Given Sean Giron 07/29/2022 0936 CDT gentamicin-polymixin B 20 mcg/mL-500 units/mL irrigation 1 Application (DABS_MODIFIED) 1 Application irrigation Given Ziyad Bolaños 07/29/2022 1004 CDT dexmedeTOMIDine 4 mcg/mL in NaCl 0.9% 100 mL infusion (PRECEDEX) 0 mcg/kg/hr intravenous Stopped Sean Giron 07/29/2022 0925 CDT dexmedeTOMIDine 4 mcg/mL in NaCl 0.9% 100 mL infusion (PRECEDEX) 0.4 mcg/kg/hr intravenous Rate/Dose Change Sean Giron 07/29/2022 0840 CDT dexmedeTOMIDine 4 mcg/mL in NaCl 0.9% 100 mL infusion (PRECEDEX) 0.5 mcg/kg/hr intravenous Rate/Dose Change Sean Giron 07/29/2022 0824 CDT dexmedeTOMIDine 4 mcg/mL in NaCl 0.9% 100 mL infusion (PRECEDEX) 0.4 mcg/kg/hr intravenous New Bag Sean Giron 07/29/2022 0845 CDT BUPivacaine 0.25 % (2.5 mg/mL) injection (MARCAINE) 18 mL injection Given Ziyad Bolaños 07/29/2022 0849 CDT lidocaine-EPINEPHrine 0.5 %-1:200,000 injection (XYLOCAINE W/EPI) 19 mL injection Given Ziyad Bolaños M.D. documented in this encounter Plan of Treatment Not on file documented as of this encounter Procedures Procedure Name Priority Date/Time Associated Diagnosis Comments FL FLUORO LESS THAN 1 HOUR RAD - Routine (most inpatients and all outpatients) 07/29/2022 9:39 AM CDT IMPLANT STIMULATOR SPINAL CORD 07/29/2022 8:02 AM CDT Neuropathy Peripheral Case Notes Service: Dr. EscobarPost-op orders: None yetFamily: - JeffRx: NoneD/C plans: To homeAssistive Devices: NoneOther needs: Rep to visit documented in this encounter Results * FL Fluoro Less Than 1 Hour (07/29/2022 9:39 AM CDT) Narrative [id number] - 07/29/2022 9:40 AM CDT This exam does not require a radiologist review or interpretation. Please refer to the patient's medical record on this date for clinical details. Cam Bolaños M.D. IMG FLUOROSCOPY P ROCEDURES [id number] NA documented in this encounter Visit Diagnoses Diagnosis Neuropathy Peripheral documented in this encounter Administered Medications Inactive Administered Medications - up to 3 most recent administrations Medication Order MAR Action Action Date Dose Rate Site BUPivacaine 0.25 % (2.5 mg/mL) injection (MARCAINE) As needed, Starting on Fri07/29/22 at 0845, Intra-Op Given 07/29/2022 8:45 AM CDT 18 mL gentamicin-polymixin B 20 mcg/mL-500 units/mL irrigation 1 Application (DABS_MODIFIED) 1 Application, irrigation, Once, On Fri07/29/22 at 0800, For 1 dose, Intra-Op, For surgical wound irrigation IN OR *IRRIGATION ONLY* Given 07/29/2022 9:36 AM CDT 1 Application lactated ringers 20 mL/hr, intravenous, Continuous, Starting on Fri07/29/22 at 1000 Continued from OR 07/29/2022 10:23 AM CDT 20 mL/hr 20 mL/hr New Bag 07/29/2022 9:30 AM CDT Rate/Dose Verify 07/29/2022 8:18 AM CDT 20 mL/h r lidocaine-EPINEPHrine 0.5 %-1:200,000 injection (XYLOCAINE W/EPI) As needed, Starting on Fri07/29/22 at 0849, Intra-Op Given 07/29/2022 8:49 AM CDT 19 mL Back metoprolol tablet 12.5 mg (LOPRESSOR) 12.5 mg, oral, Once as needed, if patient did not take their last scheduled dose of beta juan prior to arrival, Starting on Fri07/29/22 at 0706, For 1 dose, Pre-Op, Do not give if patient does not take scheduled beta blockers, if patient is receiving intravenous vasopressors or inotropes, if heart rate is less than 50 beats per minute, if systolic blood pressure is less than 90 mmHg or if diastolic blood pressure is less than 40 mmHg, or if patient has an allergy to metoprolol. sodium chloride 0.9 % injection 10 mL 10 mL, intravenous, As needed, line care, Starting on Fri07/29/22 at 0706, Pre-Op, Peripheral Intravenous Catheter and Rapid Infusion Catheter, prior to blood sampling, post blood transfusion or post blood sampling sodium chloride 0.9 % injection 3 mL 3 mL, intravenous, As needed, line care, Starting on Fri07/29/22 at 0706, Pre-Op, Prior to and following infusion and between multiple consecutive infusions: sodium chloride 0.9 % injection sodium chloride 0.9 % injection 3 mL 3 mL, intravenous, Every 12 hours scheduled, First dose on Fri07/29/22 at 0900, Pre-Op, Peripheral Intravenous Catheter and Rapid Infusion Catheter, when no infusion to maintain patency documented in this encounter Active and Recently Administered Medications Times are shown in CDT. Scheduled Medication Order 07/27/2022 07/28/2022 07/29/2022 [id number] 0.25%-0.5%-1:200,000 injection (ROBERT 2 alternative) 100 mL, subcutaneous, Once, On Fri07/29/22 at 0800, For 1 dose, Intra-Op, In OR used as local anesthetic 0800 (Due) ceFAZolin injection 2 g (ANCEF) (COMPLETED) 2 g, intravenous, Once, On Fri07/29/22 at 0800, For 1 dose, Intra-Op, Administer within 1 hour prior to surgical incision If needed, reconstitute vial per package insert instructions. See IVAG for administration guidelines. , Drug Monitoring Program: Pharmacist to adjust medication dosing based on indication and drug clearance factors., Indications: Prophylaxis, surgical 0830 (Given - Provid er: Jose Giron APRN, MACHINE FEATHEREDGER AND REDUCER) gentamicin-polymixin B 20 mcg/mL-500 units/mL irrigation 1 Application (DABS_MODIFIED) (COMPLETED) 1 Application, irrigation, Once, On Fri07/29/22 at 0800, For 1 dose, Intra-Op, For surgical wound irrigation IN OR *IRRIGATION ONLY* 0800 (Due)0936 (Give n - Provider: Cam Bolaños M.D. - Comment: back) lidocaine (PF) 10 mg/mL (1 %) injection 0.1 mL (XYLOCAINE) 0.1 mL, intradermal, Once, On Fri07/29/22 at 0715, For 1 dose, Pre-Op, For IV Placement, Radio Station Operator, PreOp 0715 (Due) sodium chloride 0.9 % injection 3 mL 3 mL, intravenous, Every 12 hours scheduled, First dose on Fri07/29/22 at 0900, Pre-Op, Peripheral Intravenous Catheter and Rapid Infusion Catheter, when no infusion to maintain patency 0900 (Due) Continuous Medication Order 07/27/2022 07/28/2022 07/29/2022 dexmedeTOMIDine 4 mcg/mL in NaCl 0.9% 100 mL infusion (PRECEDEX) (CANCELED) 0.1-1.5 mcg/kg/hr ? 92 kg Order-specific weight (2.3-34.5 mL/hr), intravenous, Continuous, Starting on Fri07/29/22 at 0730, Intra-Op, 400 mcg in 100 mL, Initiate at: Other, Rate: Per Provider, Titrate at: Other, Titrate: Per Provider, Goal: Other, Goal: Per Provider, Restriction Criteria (Pharmacy will review and approve if criteria met): INITIATED and MAINTAINED only in patients in the operating rooms or in the intensive care unit 0824 (New Bag - Prov ider: Jose Giron APRN, CRNA)0840 (Rate/Dose Change - Provider: Jose Giron APRN, CRNA)0925 (Rate/Dose Change - Provider: Jose Giron APRN, BISHOP)1004 (Stopped - Provider: Jose Giron APRN, BISHOP) lactated ringers 20 mL/hr, intravenous, Continuous, Starting on Fri07/29/22 at 1000 0752 (New Bag - Prov ider: Mena New R.N.)0818 (Rate/Dose Verify - Provider: Jose Giron APRN, BISHOP)0929 (Paused - Provider: Jose Giron APRN, CRNA - Comment: Switch to gravity)0930 (New Bag - Provider: Jose Giron APRN, CRNA)1023 (Continued from OR - Provider: Mena New RStephanNStephan)1321 (Stopped - Provider: Mena New R.N.) PRN Medication Order 07/27/2022 07/28/2022 07/29/2022 BUPivacaine 0.25 % (2.5 mg/mL) injection (MARCAINE) (CANCELED) As needed, Starting on Fri07/29/22 at 0845, Intra-Op 0845 (Given - Provid er: Cam Bolaños M.D. - Comment: back Said RN was asked to make local as my robert 2 WAS NOT ready/made for the this case to start.) fentaNYL injection 25 mcg (SUBLIMAZE) 25 mcg, intravenous, Every 2 min PRN, sedation, Administer over 1 minute immediately prior to the procedure. May repeat every 2 minutes to a maximum of 200 mcg, until pain score of 3 or less, or until the patient meets the pain comfort goal, or RASS 0 to -2. Do not give if respiratory rate is less than 8 breaths/minute., Starting on Fri07/29/22 at 0805, For 3 hours, Pre-Op flumazeniL injection 0.2 mg (ROMAZICON) 0.2 mg, intravenous, Once as needed, reversal, Starting on Fri07/29/22 at 0805, For 1 dose, Pre-Op, Administer once if patient has a RASS score of -4, -5 and has a respiratory rate less than 8 breaths/minute. lactated ringers 20 mL/hr, intravenous, Once as needed, to keep vein open, Starting on Fri07/29/22 at 0805, For 1 dose, Pre-Op lidocaine-EPINEPHrine 0.5 %-1:200,000 injection (XYLOCAINE W/EPI) (CANCELED) As needed, Starting on Fri07/29/22 at 0849, Intra-Op 0849 (Given - Provid er: Cam Bolaños M.D. - Comment: mixed with 0.25 bup) metoprolol tablet 12.5 mg (LOPRESSOR) 12.5 mg, oral, Once as needed, if patient did not take their last scheduled dose of beta juan prior to arrival, Starting on Fri07/29/22 at 0706, For 1 dose, Pre-Op, Do not give if patient does not take scheduled beta blockers, if patient is receiving intravenous vasopressors or inotropes, if heart rate is less than 50 beats per minute, if systolic blood pressure is less than 90 mmHg or if diastolic blood pressure is less than 40 mmHg, or if patient has an allergy to metoprolol. midazolam (PF) injection 0.25 mg (VERSED) 0.25 mg, intravenous, Every 2 min PRN, sedation, RASS -2, Starting on Fri07/29/22 at 0805, For 3 hours, Pre-Op, May repeat every 2 minutes to a maximum of 5 mg. Do not give if respiratory rate is less than 8 breaths/minute. midazolam (PF) injection 0.5 mg (VERSED) 0.5 mg, intravenous, Once as needed, sedation, Starting on Fri07/29/22 at 0805, For 1 dose, Pre-Op midazolam (PF) injection 0.5 mg (VERSED) 0.5 mg, intravenous, Every 2 min PRN, sedation, RASS -1, Starting on Fri07/29/22 at 0805, For 3 hours, Pre-Op, May repeat every 2 minutes for a maximum of 5 mg. Do not give if respiratory rate is less than 8 breaths/minute. midazolam (PF) injection 1 mg (VERSED) 1 mg, intravenous, Every 2 min PRN, sedation, RASS 0, Starting on Fri07/29/22 at 0805, For 3 hours, Pre-Op, May repeat every 2 minutes for a maximum of 5 mg. Do not give if respiratory rate is less than 8 breaths/minute. naloxone injection 0.2 mg (NARCAN) 0.2 mg, intravenous, Once as needed, respiratory depression, Starting on Fri07/29/22 at 0805, For 1 dose, Pre-Op, Administer once if patient has a RASS score of -4, -5 and has a respiratory rate less than 8 breaths/minute. sodium chloride 0.9 % injection 10 mL 10 mL, intravenous, As needed, line care, Starting on Fri07/29/22 at 0706, Pre-Op, Peripheral Intravenous Catheter and Rapid Infusion Catheter, prior to blood sampling, post blood transfusion or post blood sampling sodium chloride 0.9 % injection 3 mL 3 mL, intravenous, As needed, line care, Starting on Fri07/29/22 at 0706, Pre-Op, Prior to and following infusion and between multiple consecutive infusions: sodium chloride 0.9 % injection documented in this encounter
--- OUTSIDE RECORDS SUMMARY | 2023-04-16 11:34 | XMS_ITS | Encounter Summary ---
Author Name Unknown Organization [facility] Address [address] [place] [id number] Care Team Providers Care Diesel Truck Mechanic Name Role Phone Unavailable Primary Care Provider Unavailabl e Reason for Visit * Auth/Cert (Routine) Specialty Diagnoses / Procedures Referred By Contac t Referred To Contact Diagnoses Neuralgia and neuritis, unspecified intractable pain Procedures [place] IMPL NEUROSTIM ELEC PERC EPI [place] INS/RPLC SPINAL NS GEN/REC NEVRO IMPLANT STIMULATOR SPINAL CORD Referral ID Status Reason Start Date Expiration Date Visits Re quested Visits Authorized [id number] 1 1 Encounter Details Date Type Department Care Team (Late st Contact Info) Description 07/29/2022 8:18 AM CDT Anesthesia Event Outpatient Procedure Center in [place], [place] [address] [place] [phone] Jose Giron, MANAGER ENGINE, CRACKER DOUGH MIXER [address] [place] [phone] Anesthesia Record Procedure Summary Procedure Name Responsible Anesthesiologist Anesthesia Start Time Anesthesia Stop Time NEVRO IMPLANT STIMULATOR SPINAL CORD, CIPN Study. (Back) Jose Giron, MANAGER ENGINE, CRACKER DOUGH MIXER 07/29/22 0818 07/29/22 1024 Events Date Time Event Comment 07/29/2022 0752 0818 An Start Machine/Equipme nt Checked Infection Precautions Followed Procedure/Site Verified NPO Status Verified Supine Standard ASA Monitors Applied 0825 Turnover to Proceduralist 0843 Proc Start 1010 Proc Fin 1016 Turnover to ANE Staff 1016 an stop data 1024 An End I completed my handoff to the receiving staff during which we 1. Identified the patient 2. Identified the responsible provider 3. Reviewed the pertinent medical history 4. Discussed the surgical course 5. Reviewed intra-op anesthesia management and issues during anesthesia 6. Set expectations for post-procedure period 7. Allowed opportunity for questions and acknowledgement of understanding. Meds Name Total midazolam PF injection 1 mg/mL 2 mg fentanyl injection 50 mcg/mL 100 mcg propofol 10 mg/mL 40 mg lidocaine 2% (mg) injection 40 mg ondansetron PF 4 mg/2 mL injection 4 mg ceFAZolin injection 2 g (ANCEF) 2 g dexmedeTOMIDine 4 mcg/mL in NaCl 0.9% 10 0 mL infusion (PRECEDEX) 68.23 mcg dexmedeTOMIDine (PRECEDEX) bolus from ba g 32 mcg lactated ringers 1,000 mL * Agents No agents on file. * Blood No blood administrations on file. Lines, Drains, and Airways Type Details Placement Removal Wound 05/30/22; 0837; N; Medial 0837 by Carlotta Caldwell R.N. Wound 07/29/22; 0923; N; Medial 09 by Carlotta Caldwell R.N. Wound 07/29/22; 0924; N; L ower, Right 07/29/22 0924 by Carlotta Caldwell R.N. Peripheral IV Placement Date: 11/13; Placement Time: 0748; Catheter Size: 22 G; Orientation: Left; Location: Hand; Site Prep: Chlorhexidine (Preferred); Technique: Anatomical landmarks; Inserted by: Mena; Insertion Attempts: 1; Removal Date: 07/29/22; Removal Time: 1321; Removal Reason: Patient discharged 07/29/22 0748 by Mena New R.NStephan 07/29/22 1321 by Mena eNw RStephanNStephan documented in this encounter Social History Tobacco Use Types Packs/Day Years [...] How often do you attend chur or confucianism services? 1 to 4 times per year 12/17/2021 Do you belong to any clubs o r organizations such as tenriism groups, unions, fraternal or athletic groups, or [...] and heating? Not hard at all 12/17/2021 [facility] Occupat ional Health - Occupational Stress [...] place to sleep or slept in a prison (including now)? No 12/17/2021 Nutrition Answer Date [...] AM CDT documented as of this encounter OR Notes * Anesthesia Postprocedure Evaluation - Jose Giron, MANAGER ENGINE, CRACKER DOUGH MIXER - 07/29/2022 10:24 AM CDT Patient: Suma Damon Procedure Summary Date: 07/29/22 Room / Location: [place] [address] / [facility] in [place], [place] Anesthesia Start: 08 Anesthesia Stop: 1024 Procedure: NEVRO IMPLANT STIMULATOR SPINAL CORD, CIPN Study. (Back) Diagnosis: Neuropathy Peripheral (intractable pain.) Surgeons: Ciaran Escobar M.D. Responsible Provider: Jose Giron APRN, CRNA Anesthesia Type: MAC ASA Status: 2 Anesthesia Type: MAC Last vitals Vitals Value Taken Time BP 83/60 07/29/22 1021 Temp Pulse 63 07/29/22 1023 Resp 9 07/29/22 1023 SpO2 94 % 07/29/22 1023 Vitals shown include unvalidated device data. Please reference Vitals flowsheet for most recent vital signs. Anesthesia Post Evaluation Patient Disposition: dismissal Cardiovascular status: hemodynamics (HR & BP) acceptable Respiratory status: patent airway with spontaneous effort Temperature: normothermic Oxygen requirements: room air Level of consciousness: awake Pain score: pain adequately controlled and/or at baseline Post Op nausea/vomiting: none Hydration status: euvolemic * Anesthesia Preprocedure Evaluation - Kishore Zepeda M.D. - 07/29/2022 7:52 AM CDT Preprocedure Anesthesia & H&P Assessment Procedure Summary Date/Time: 07/29/2215 Procedure: NEVRO IMPLANT STIMULATOR SPINAL CORD, CIPN Study. (Back) Diagnosis: Neuropathy Peripheral [G62.9] Pre-op diagnosis: intractable pain. Location: [place] [address] / [facility] in [place], [place] Surgeons: Ciaran Escobar M.D. Pertinent components of the patient's history including current problem list, medical history, surgical history, family history, social history, medications and allergies were reviewed. Present illness and pre-op diagnosis were confirmed. The planned surgery / procedure was verified with the patient / legal guardian. The patient's general health condition remains unchanged RELEVANT COMORBID CONDITIONS No relevant active problems OBJECTIVE PHYSICAL EXAMINATION Airway (HEENT) Mallampati: I TM Distance: >3 FB Neck ROM: Full Mouth Opening: >3 cm Upper Lip Bite Test Class: I Cardiovascular Rhythm: Regular Rate: Normal Cardiovascular Assessment: cardiovascular normal Functional Capacity: >4 METS Pulmonary Pulmonary Assessment: Clear General / Constitutional Constitutional Assessment: Normal General State of Health:: healthy appearing and calm ASSESSMENT / PLAN ANESTHESIA PLAN ASA: 2 Anesthesia Plan: MAC Patient seen and allergies reviewed, anesthesia plan and risks discussed directly with patient /legal guardian or through an handbag operator. Risks/Benefits/Alternatives of Blood transfusion discussed with patient / legal guardian, includingan opportunity to ask questions and/or decline some or all transfusion therapies. The patient / legal guardian consented to the use of all blood products, as deemed medically necessary Approval to Proceed: approved for anesthesia documented in this encounter Plan of Treatment Not on file documented as of this encounter Visit Diagnoses Not on filedocumented in this encounter Administered Medications Inactive Administered Medications - up to 3 most recent administrations Medication Order MAR Action Action Date Dose Rate Site ceFAZolin injection 2 g (ANCEF) 2 g, intravenous, Once, On Fri07/29/22 at 0800, For 1 dose, Intra-Op, Administer within 1 hour prior to surgical incision If needed, reconstitute vial per package insert instructions. See IVAG for administration guidelines. , Drug Monitoring Program: Pharmacist to adjust medication dosing based on indication and drug clearance factors., Indications: Prophylaxis, surgical Given 07/29/2022 8:30 AM CDT 2 g dexmedeTOMIDine 4 mcg/mL in NaCl 0.9% 100 mL infusion (PRECEDEX) 0.1-1.5 mcg/kg/hr ? 92 kg Order-specific weight [...] rooms or in the intensive care unit Rate/Dose Change 07/29/2022 9:25 AM CDT 0.4 mcg/kg/hr 9.2 mL/hr Rate/Dose Change 07/29/2022 8:40 AM CDT 0.5 mcg/kg/hr 11.5 mL/hr New Bag 07/29/2022 8:24 AM CDT 0.4 mcg/kg/hr 9.2 mL/hr dexmedeTOMIDine bolus from bag (PRECEDEX) intravenous, Administer over 10 Minutes, As needed, Starting on Fri07/29/22 at 0827, Anesthesia Intra-op Given 07/29/2022 8:27 AM CDT 16 mcg Given 07/29/2022 8:24 AM CDT 16 mcg fentaNYL injection (SUBLIMAZE) intravenous, As needed, Starting on Fri07/29/22 at 0821, Anesthesia Intra-op Given 07/29/2022 9:30 AM CDT 50 mcg Given 07/29/2022 8:21 AM CDT 50 mcg lactated ringers 20 mL/hr, intravenous, Continuous, Starting on Fri07/29/22 at 1000 Continued from OR 07/29/2022 10:23 AM CDT 20 mL/hr 20 mL/hr New Bag 07/29/2022 9:30 AM CDT Rate/Dose Verify 07/29/2022 8:18 AM CDT 20 mL/h r lidocaine (PF) (cardiac) injection intravenous, As needed, Starting on Fri07/29/22 at 0850, Anesthesia Intra-op Given 07/29/2022 8:50 AM CDT 40 mg midazolam (PF) injection (VERSED) intravenous, As needed, Starting on Fri07/29/22 at 0821, Anesthesia Intra-op Given 07/29/2022 8:30 AM CDT 1 mg Given 07/29/2022 8:21 AM CDT 1 mg ondansetron (PF) injection (ZOFRAN) intravenous, As needed, Starting on Fri07/29/22 at 0821, Anesthesia Intra-op Given 07/29/2022 8:21 AM CDT 4 mg propofol 10 mg/mL infusion (DIPRIVAN) intravenous, As needed, Starting on Fri07/29/22 at 0850, Anesthesia Intra-op Given 07/29/2022 9:30 AM CDT 20 mg Given 07/29/2022 8:50 AM CDT 20 mg documented in this encounter
--- OUTSIDE RECORDS SUMMARY | 2023-04-16 11:34 | XMS_ITS | Encounter Summary ---
Author Name Unknown Organization [facility] Address [address] [place] [address] Care Team Providers Care Voice Over Artist Name Role Phone Unavailable Primary Care Provider Unavailabl e Reason for Visit * Auth/Cert (Routine) Specialty Diagnoses / Procedures Referred By Contac t Referred To Contact Diagnoses Neuralgia and neuritis, unspecified intractable pain Procedures CO IMPL NEUROSTIM ELEC PERC EPI CO INS/RPLC SPINAL NS GEN/REC NEVRO IMPLANT STIMULATOR SPINAL CORD Referral ID Status Reason Start Date Expiration Date Visits Re quested Visits Authorized [id number] 1 1 Encounter Details Date Type Department Care Team (Latest Contact Info) Description 07/29/2022 7:05 AM CDT - 07/29/2022 1:25 PM CDT Hospital Encounter Outpatient Procedure Center in [place], [place] [address] [place] [address] Ciaran Escobar M.D. [address] [place] [phone] Discharge Disposition: Home or Self Care Social History Tobacco Use Types Packs/Day Years [...] often do you attend chur ch or oriental orthodox services? 1 to 4 times per year 12/17/2021 Do you belong to any clubs o r organizations such as protestant groups, unions, fraternal or athletic groups, or [...] and heating? Not hard at all 12/17/2021 [facility] of Occupat ional Health - Occupational [...] place to sleep or slept in a half-way (including now)? No 12/17/2021 Nutrition Answer Date [...] Sign Reading Time Taken Comments Blood Pressure 90/67 07/29/2022 1:05 PM CDT Pulse 74 07/29/2022 12:40 PM CDT Temperature 36.5 ??C (97.7 ??F) 07/29/2022 10:25 AM C DT Respiratory Rate 21 07/29/2022 12:40 PM CDT Oxygen Saturation 94% 07/29/2022 12:40 PM CDT Inhaled Oxygen Concentration - - Weight 93 kg (205 lb 0.4 oz) 07/29/2022 7:31 AM CDT Height - - Body Mass Index 33.07 05/31/2022 9:44 AM SOURCING INTERN documented in this encounter Discharge Instructions * [...] ???Anesthesia PainOutpatient Adult Doctor on-call?? via the [facility] Media Law Faculty Member (phone: [phone]) Pain Control Your surgeon may provide you [...] this operation. Fluoroscopic images were saved in QREADs. The patient was identified and evaluated in [...] at the left T11-12 interspace using a xbdy-he-nodyvczqkg technique. The stimulator leadwas advanced without difficulty [...] lidocaine and 0.5% bupivacaine with 1:200,000 epinephrine Hart used: Vendor provided anchor Hart suture: Ethibond IPG Pocket location: Right flank [...] infusion (PRECEDEX) 0.5 mcg/kg/hr intravenous Rate/Dose Change MackSean 07/29/2022 0824 CDT dexmedeTOMIDine 4 mcg/mL in NaCl 0.9% 100 mL infusion (PRECEDEX) 0.4 mcg/kg/hr intravenous New Bag MackSean 07/29/2022 0845 CDT BUPivacaine 0.25 % (2.5 [...] 1 Hour (07/29/2022 9:39 AM CDT) Narrative [id number] - 07/29/2022 9:40 AM CDT This exam does not require a radiologist review or interpretation. Please refer to the patient's medical record on this date for clinical details. Cam Bolaños M.D. IMG FLUOROSCOPY P ROCEDURES [id number] NA documented in this encounter Visit Diagnoses Not on filedocumented in this encounter Administered Medications Inactive Administered Medications - up to 3 most recent administrations Medication Order MAR Action Action Date Dose Rate Site lactated ringers 20 mL/hr, intravenous, Continuous, Starting on Fri07/29/22 at 1000 Continued from OR 07/29/2022 10:23 AM CDT 20 mL/hr 20 mL/hr New Bag 07/29/2022 9:30 AM CDT Rate/Dose Verify 07/29/2022 8:18 AM CDT 20 mL/h r metoprolol tablet 12.5 mg (LOPRESSOR) 12.5 mg, oral, Once as needed, if patient did not take their last scheduled dose of beta juan prior to arrival, Starting on Fri07/29/22 at 0706, For 1 dose, Pre- Op, Do not give if patient does not [...] line care, Starting on Fri07/29/22 at 0706, Pre- Op, Peripheral Intravenous Catheter and Rapid Infusion Catheter, [...] CDT. Scheduled Medication Order 07/27/2022 07/28/2022 07/29/2022 NLPotkiyivp-isnbvdioo-vcdzfpgraxk 0.25%-0.5%-1:200,000 injection (ROBERT 2 alternative) 100 mL, [...] (Given - Provid er: Jose Giron APRN, BISHOP) gentamicin-polymixin B 20 mcg/mL-500 units/mL irrigation 1 [...] For 1 dose, Pre-Op, For IV Placement, Storm Door Maker, PreOp 0715 (Due) sodium chloride 0.9 % [...] Bag - Prov ider: Jose Giron APRN, BISHOP)0840 (Rate/Dose Change - Provider: Jose Giron APRN, BISHOP)0925 (Rate/Dose Change - Provider: Jose Giron APRN, BISHOP)1004 (Stopped - Provider: Jose Giron APRN, BISOHP) lactated ringers 20 mL/hr, intravenous, Continuous, Starting on Fri07/29/22 at 1000 0752 (New Bag - Prov ider: Mena New R.N.)0818 (Rate/Dose Verify - Provider: Jose Giron APRN, BISHOP)0929 (Paused - Provider: Jose Giron APRN, CRNA - Comment: Switch to gravity)0930 (New Bag - Provider: Jose Giron APRN, CRNA)1023 (Continued from OR - Provider: Mena New R.N.)1321 (Stopped - Provider: Mena New R.N.) PRN [...]
--- OUTSIDE RECORDS SUMMARY | 2023-04-16 11:34 | XMS_ITS | Encounter Summary ---
Author Name Unknown Organization [facility] Address [address] [place] [address] Care Team Providers Care Bulk Sugar Handler Name Role Phone Unavailable Primary Care Provider Unavailabl e Reason for Visit * Reason Onset Date Comments Follow-up 09/19/2022 [facility] is c alling to complete your 3-month follow-up PROMIS-CAT questionnaires. You will receive questionnaires at different timepoints in the future. You can complete the current questionnaires in your portal and no return call is necessary. If you have any questions, please call us at: [phone]. Thank you! Encounter Details Date Type Department Care Team (Latest Contact Info) Description 09/19/2022 Clinical Communication Department of Spine in [place], [place] [address] [place] [address] RamónMargareth Moise [address] [place] [address] Follow-up ([facility] is calling to complete your 3-month follow-up PROMIS-CAT questionnaires. You will receive questionnaires at different timepoints in the future. You can complete the current questionnaires in your portal and no return call is necessary. If you have any questions, please call us at: [phone]. Thank you! ) Social History Tobacco Use Types Packs/Day Years [...] often do you attend chur ch or hindu services? 1 to 4 times per year 12/17/2021 Do you belong to any clubs o r organizations such as anabaptist groups, unions, fraternal or athletic groups, or [...] and heating? Not hard at all 09/02/2022 [facility] Occupat ional Health - Occupational Stress [...] money to buy more. Never true 09/03/19 Within the past 12 months, t he [...] your living situation today? I have a [facility] place to live 09/02/2022 Education Answer [...] encounter Miscellaneous Notes * Telephone Encounter - Margareth Melgar - 09/19/2022 12:23 PM CDT [facility] is calling to complete your 3-month follow-up PROMIS-CAT questionnaires. You will receive questionnaires at different timepoints in the future. You can complete the current questionnairesin your portal and no return call is necessary. If you have any questions, please call us at: [phone]. Thank you! documented in this encounter Plan of Treatment Not on file documented as of this encounter Visit Diagnoses Not on filedocumented in this encounter
--- OUTSIDE RECORDS SUMMARY | 2023-04-16 11:34 | XMS_ITS | Encounter Summary ---
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 [facility] Referral ID Status Reason Start Date Expiration Date Visits Re quested Visits Authorized [id number] Closed 07/02/2022 07/02/2023 1 1 Encounter Details Date Type Department Care Team (Latest Contact Info) Description 07/30/2022 11:00 AM CDT Procedure visit Division of Pain Medicine in [place], [place] [address] [place] [address] Cam Bolaños M.D. Lundstrom, Laura B, R.N. [...] often do you attend chur ch or evangelical services? 1 to 4 times per year 12/17/2021 Do you belong to any clubs o r organizations such as adventist groups, unions, fraternal or athletic groups, or [...] and heating? Not hard at all 12/17/2021 [facility] of Occupat ionmn Health - Occupational Stress Questionnaire Answer Date [...] place to sleep or slept in a intermediate (including now)? No 12/17/2021 Nutrition Answer Date [...] Progress Notes * Yesenia Dunbar, R.N. - 07/30/2022 11:00 AM CDT PAIN CLINIC PROVIDER: Dr. Escobar - LICHA Study patient PRIMARY IDENTIFIED PAIN AREA FOR NEUROMODULATION: bilateral foot neuropathic pain PERTINENT SURGICAL HISTORY: Suma Damon has a past surgical history that includes Nevro Trial Stimulator Spinal Cord (Posterior, 05/30/2022); and Nevro Implant Stimulator Spinal Cord (N/A, 07/29/2022). Suma Damon and her present days post op: 1 after implant of neurostimulator. PAIN ASSESSMENT Patient reports that chronic pain is typically Pain 0-10: 10/10. With stimulation currently pain is Pain 0-10: 0/10. Patient reports that procedural pain is Pain 0-10: 2/10. It was recommended to use intermittent icing and the prescribed pain medication for procedural pain. She was provided with two ice packs at today's appointment. FUNCTIONAL GOALS 1) Sleep 7 hours without pain interference (before stim 5 hours interrupted multiple times by her pain) - TBD 2) Sit 45 minutes without pain interference (before stim, 0 minutes) - TBD 3) Stand 30 minutes without pain interference (before stim, 0 minutes) - TBD 4) Walk 30 minutes without pain interference (before stim, 0 minutes) - TBD 5) Recovery time of 60 minutes after activity (before stim, never recover) - TBD EVALUATION OF IMPLANT Patient notes a TBD improvement in pain, and TBD improvement in functionality. PROGRAMMING Elijah Munoz wine sales representative was present for analysis and impedance check of neurostimulator.Charging was reviewed with patient. Parameters addressed: *Amplitude - no *Electrode Array - no *Pulse Width - no *Rate - no It was stated the focus of the first two weeks is to heal from the incisions. The programs are running but at a lower level than the trial; they will be fine tuned at the reprogramming appointment on08/08/22. HOME CARE INSTRUCTIONS: RN reviewed verbally and supplied patient with printed copy of home care instructions. No drainage was noted. Patient was provided with supply of Gauze sponge dressing and paper tape. Mrs. Damon was informed she does not need to continue the mupirocin. Day 0-Week 2 after implant: Activity Restrictions [...] until after 14 days (includes baths, hot tubs and swimming) Monitor incisions for signs of infection: Signs/symptoms: worsening pain, redness, swelling, temperature greater than 100.4F, yellow/green ormalodorous drainage from incisions If any of the above are identified, call the Pain Clinic Nurse Contact Number or ???Anesthesia PainOutpatient Adult Doctor on-call?? via the [facility] Regulatory Submissions Associate (phone: [phone]) Pain Control Your surgeon may provide you with approximately three days of pain medications Use ice packs 20 minutes on/off as needed Follow-Up Return to Pain Clinic (or your local provider if traveling from a distance) on post-op day 10-14 toinspect incisions and remove sutures or millie, if present. This visit will be scheduled for you by your surgical team. An opportunity for questions was provided, and And Mr. Damon denied having any at this time. They were encouraged to contact the Pain Clinic with future questions or concerns. FOLLOW UP Mrs. Damon will present to the Pain Clinic for the x-rays and reprogramming appointment on 08/08/22. Disposition/Recommendation: self-care appropriate at this time. The following references were used: nursing clinical judgement VISIT OUTCOME: Learner(s): Suma Damon Readiness to learn: Accepting Methods used for education: Explanation Learner(s) response: Patient/caregiver able to teach back If there are any ongoing questions or concerns Suma Damon will call the Pain Clinic RN coordinators at [phone]. Review[address] Escobar. 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
--- OUTSIDE RECORDS SUMMARY | 2023-04-16 11:34 | XMS_ITS | Encounter Summary ---
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 [address] [place] [phone] [facility] Referral ID Status Reason Start Date Expiration Date Visits Re quested Visits Authorized [id number] Closed 12/20/2022 12/19/2025 1 1 Encounter Details Date Type Department Care Team (Latest Contact Info) Description 01/21/2023 10:00 AM CDT Office Visit Division of Pain Medicine in [place], [place] [address] [place] [phone] Jarek Robison, UTE, C.N.P., M.S.N. 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 1 to 4 times per year 12/17/2021 Do you belong to any clubs o r organizations such as muslim groups, unions, fraternal or athletic groups, or [...] and heating? Not hard at all 01/21/2023 [facility] [place] of Occupat ional Health - Occupational Stress [...] your living situation today? I have a [facility] place to live 01/21/2023 Education Answer [...] as of this encounter Progress Notes * Jarek Robison, UTE, C.N.P., M.S.N. - 01/21/2023 10:00 AM CDT SUBJECTIVE CHIEF COMPLAINT / REASON FOR VISIT Suma Damon is a 52 y.o. female who returns to the Pain Clinic for routine follow-up. HISTORY OF PRESENT ILLNESS Suma Damon is a 52 y.o. female with a history of generalized anxiety, ovarian CA, and chemotherapy-induced peripheral neuropathy. She is status post Nevro spinal cord stimulator implant on 07/29/[address] Escobar for her neuropathic pain. Patient returns for routine follow-up. Overall, she reports 95% relief in her pain with the occasional flare of her baseline pain. When the pain does occur, she describes it in the same general location as previous, from the knees distally bilaterally. More recently she has noted pain in the arches. She denies any issues with incisionalhealing, charging issues, or device malfunction. Pain score today: 0/10. REVIEW OF SYSTEMS Suma Damon's history was reviewed including allergies, current medications, and problem list. OBJECTIVE PHYSICAL EXAM GENERAL: Pleasant, 52 y.o. female, in no acute distress. HEAD: Normocephalic and atraumatic. EYES: Pupils 3 mm. LUNGS: Unlabored respirations. In no obvious distress. SKIN: Incisions well healed. Surrounding area absent of erythema, lesions, rashes, or infections. GAIT: Non-antalgic. MUSCULOSKELETAL/SPINE: No tenderness over IPG site NEURO: STRENGTH: lower extremity strength grossly intact and equal bilaterally SENSATION: reduced sensation to light touch, pinprick, and cold/ice sensation up to the level of her mid shins MENTAL: Alert, oriented, appropriate mood and affect, recent and remote memory intact. 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 It is reassuring that she has found relief with the SCS device. Given the efficacy of the device with the current settings, she did not undergo a reprogramming session today and will continue using the device as she currently is. We encouraged her to reach out if anything changes or if f urther device follow-up is needed. FOLLOW UP The patient can follow up with the Pain Clinic as needed Total time: 20 minutes PATIENT EDUCATION Ready to learn, no apparent learning barriers were identified; learning preferences included listening. Explained diagnosis and treatment plan; patient expressed understanding of the content. * Bhupendra Alvarez M.D. - 01/21/2023 10:00 AM CDT This is a supervisory note for Jarek Robison APRN TITLE DEPARTMENT MANAGER MSN from the same date. Their documentationshould be included as part of my own for billing and clinical care. 52 year old female with a history of CIPN who is s/p SCS implant placed by Dr. Ciaran Escobar. The patient is presenting for a 6-month post-SCS visit. She is doing extremely well from a pain relief standpoint. She reports 95% relief of her pain intensity. She occasionally gets flares in the arch of her foot bilaterally with referred pain proximally into her shins, but this is very intermittent. Physical exam continues to demonstrate reduced sensation to touch, pinprick, and cold/ice sensation upto the level of her mid shins. She reports some numbness (does not interfere with daily activities)but denies any tingling symptoms. 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
--- OUTSIDE RECORDS SUMMARY | 2023-04-16 11:34 | XMS_ITS | Encounter Summary ---
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 [facility] Referral ID Status Reason Start Date Expiration Date Visits Re quested Visits Authorized [id number] Closed 07/02/2022 07/02/2023 1 1 Encounter Details Date Type Department Care Team (Latest Contact Info) Description 10/29/2022 2:00 PM CDT Procedure visit Division of Pain Medicine in [place], [place] [address] [place] [phone] Cam Bolaños M.D. Lundstrom, Laura B, R.N. [...] often do you attend chur ch or adventism services? 1 to 4 times per year 12/17/2021 Do you belong to any clubs o r organizations such as jainism groups, unions, fraternal or athletic groups, or [...] and heating? Not hard at all 09/02/2022 [facility] - [facility]ational Stress Questionnaire Answer Date [...] Answer Date Recorded Employment status Unemployed/not in [email or web address] paid workforce and NOT seeking employment 12/17/2021 Housing Stability Answer Date Recorded What is your living situation today? I have a [facility] place to live 09/02/2022 Education Answer [...] Progress Notes * Yesenia Dunbar, R.N. - 10/29/2022 2:00 PM CDT PAIN CLINIC PROVIDER: Dr. Escobar Mrs. Damon presented to the Pain Clinic for a follow up appointment post Nevro spinal cord stimulator implant completed on 07/29/22. PRIMARY IDENTIFIED PAIN AREA FOR NEUROMODULATION: chemo-induced neuropathic pain in bilateral feet PERTINENT SURGICAL HISTORY: Suma Damon has a past surgical history that includes Nevro Trial Stimulator Spinal Cord (Posterior, 05/30/2022); and Nevro Implant Stimulator Spinal Cord (N/A, 07/29/2022). PAIN ASSESSMENT Patient reports that chronic pain is typically Pain 0-10: 10/10. With stimulation currently pain is Pain 0-10: 2/10. On average she would rate the pain a 2-3/10. It worsens at night and flares to an 7-8/10 on average. At the end of August she went to a local ED due to a spasming stabbing pain in her foot during the night. She said the pain would build in her body. The pain was so intense that she sobbed. At the end of August 2022, she had broken a bone in her foot. After this, Elvin Quiros, recommended to change programs. She slept 24 hours after this change, and felt better. The nighttime pain continued after this change. Per the patient, the stabbing pain through the toe is historic and occurred before the SCS implant. FUNCTIONAL GOALS 1) Sleep 7 hours without pain interference (before stim 5 hours interrupted multiple times by her pain) - 4 hours total - once she falls asleep, she remains asleep with no interruptions due to pain; this is an improvement 2) Sit 45 minutes without pain interference (before stim, 0 minutes) - 2 hours - predominantly sitting since 11AM today, roughly 3.5 hours 3) Stand 30 minutes without pain interference (before stim, 0 minutes) - difficult to determine due to broken foot - will be determined at a future date 4) Walk 30 minutes without pain interference (before stim, 0 minutes) - difficult to determine due to broken foot - will be determined at a future date 5) Recovery time of 60 minutes after activity (before stim, never recover) - 45 minutes EVALUATION OF IMPLANT Patient notes a 75% improvement in pain during the day and a 20% improvement in pain at night, withan average improvement in pain of 40%. 50% improvement in functionality. This did not include benefit while standing or walking due to thedifficulty evaluating with the broken foot. Mrs. Damon stated it could be higher. Mrs. Damon noted there has been improvement but would like assistance with the nighttime pain. PROGRAMMING ELVIN Quiros computer help desk representative was present for analysis and impedance check of neurostimulator. According to analysis, no impedances and no movement of leads. Programming and remote use were reviewed with patient. Paresthesia mapping was completed. The following changes were made to patient's stimulation programming: electrodes were changed. Mrs. Damon left today's appointment on Group 7, Program 1, 4L Parameters addressed: *Amplitude - no *Electrode Array - yes *Pulse Width - no *Rate - no New programming was reviewed with patient. 5 programs were discussed in great detail with Mrs. Damon. It was stated she has 35 programs already programmed into her device. A new programming schedule will be created and sent to the patient via a portal message. It was recommended that if things get better or worse, to contact the Pain Clinic. Otherwise, she will continue with the programming schedule. After each change, it should be evaluated for 3 days unless an increase of pain in which she will contact the Pain Clinic. An opportunity for questions was provided, and they were answered to the best of my ability. Mrs. Damon was encouraged to contact the Pain Clinic with future questions or concerns. FOLLOW UP Mrs. Damon will contact the Pain Clinic with updates per the programming schedule and with questions/concerns before then. Disposition/Recommendation: self-care appropriate at this time. The following references were used: nursing clinical judgement VISIT OUTCOME: Learner(s): Suma Damon Readiness to learn: Accepting Methods used for education: Explanation Learner(s) response: Patient/caregiver able to teach back If there are any ongoing questions or concerns Suma Damon will call the Pain Clinic RN coordinators at [phone]. Reviewed with Dr. Escobar. 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
--- OUTSIDE RECORDS SUMMARY | 2023-04-16 11:34 | XMS_ITS | Encounter Summary ---
Author Name Unknown Organization [facility] Address [address] [place] [id number] Care Team Providers Care Cooler Operator Name Role Phone Unavailable Primary Care Provider Unavailabl e Reason for Referral * Outpatient (Routine) - Authorized Specialty Diagnoses / Procedures Referred By Ceeac t Referred To Contact Diagnoses Presence Of Neurostimulator Procedures DX Thoracic Spine 3 Views Alicia Frost APRN, C.N.P., M.S. 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 [facility] Referral ID Status Reason Start Date Expiration Date Visits Re quested Visits Authorized [id number] Closed 07/02/2022 2025 1 1 Encounter Details Date Type Department Care Team (Latest Contact Info) Description 10/29/2022 1:00 PM CDT Office Visit Division of Pain Medicine in [place], [place] [address] [place] [phone] Alicia Frost APRN C.N.P., M.S. 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 1 to 4 times per year 12/17/2021 Do you belong to any clubs o r organizations such as rastafarian groups, unions, fraternal or athletic groups, or [...] and heating? Not hard at all 09/02/2022 [facility] [place] of Occupat ional Health - Occupational Stress [...] your living situation today? I have a [facility] place to live 09/02/2022 Education Answer Date [...] as of this encounter Progress Notes * Alicia Frost APRN C.N.P., M.S. - 10/29/2022 1:00 PM CDT SUBJECTIVE CHIEF COMPLAINT / REASON FOR VISIT Suma Damon presents today in follow-up of 1. 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 Presence Of Neurostimulator HISTORY OF PRESENT ILLNESS Suma Damon is a 52 y.o. female with a history of generalized anxiety, ovarian CA, and chemotherapy-induced peripheral neuropathy status post Nevro spinal cord stimulator implant with Dr. Escobar 07/29/2022 for the management of neuropathic pain. Patient returns for routine follow-up. Interval history includes a Chatman fracture of the left foot in August. She is healing well and had follow-up imaging earlier this week. Primary pain complaint is of the bilateral lower extremities encompassing the feet and ankles up toabout the mid cardona. Symptoms are knife-like, severe. Symptoms are constant. She is not able to provide a % improvement with the implanted SCS, but states she has seen a ???huge improvement?? during the daytime hours, though continues to struggle with insomnia and nighttime pain. She feels some mistrust toward her care providers being she had a ???life changing?? trial and has minimal response now to the permanent device. She shares that her spouse and son express their opinion that she appears improved, though overall she does not feel she has had any improvement with the stimulator. At the10 day recheck, there was noted lead migration , which she feels is affecting her response. She is tearful during the visit. She expresses that she is experiencing ???living hell?? . In comparison to1 year ago, she does agree that she is improved but continues to spend most of her day in bed, leavi ng the house to run errands for the home. She states that she went to a ???rage room?? twice with her friends which was therapeutic. She has been working on trialing alternative programming and increased stimulation noticing posturing of the great toe which improved with adjustment to programming. She remains on medical cannabis, gabapentin 600 mg four times a day, duloxetine 90 mg daily. Suma Damon denies recent fevers, chills, infections or antibiotics. No allergies to local anesthetic, corticosteroid. Allergy to gadolinium containing contrast. No anticoagulation. Pain score today: 2/10. OBJECTIVE REVIEW OF SYSTEMS: Suma Damon's history was reviewed including allergies, current medications, and problem list. PHYSICAL EXAM GENERAL: Pleasant, 52 y.o. female, in no acute distress. HEAD: Normocephalic and atraumatic. EYES: Pupils 3 mm. LUNGS: Unlabored respirations. SKIN: Implant sites absent of erythema, lesions, rashes, or infections. GAIT: Non-antalgic. MUSCULOSKELETAL: Left walking boot with known fracture of foot. MENTAL: Alert, oriented, appropriate mood and affect, recent and remote memory intact. 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 female with a history of chemotherapy-induced peripheral neuropathy primarily affecting the bilateral feet to about the mid cardona returns for routine follow-up. She isnot satisfied with current stimulation. She had the opportunity to meet with Dr. Escobar to collaborate future planning for revision versus alternative treatments. She is quite tearful, expressing significant frustration and helplessness during today's visit. She may benefit from he visit with our wellness coaches to explore non interventional pain management and coping strategies. MEDICAL DECISION MAKING 1. Thoracic x-ray to evaluate for further lead migration which may explain loss of therapy response. 2. Reprogramming visit today. 3. Consider wellness consultation. FOLLOW-UP As needed, based on next steps and future planning for treatments Total time: 25 minutes PATIENT EDUCATION Ready to learn, no apparent learning barriers were identified; learning preferences included listening. Explained diagnosis and treatment plan; patient expressed understanding of the content. documented in this encounter Consult Notes * Ciaran Escobar M.D. - 10/29/2022 1:00 PM CDT Pain Medicine Supervisory Note This is a supervisory note for Alicia Frost APRN, C.N.P, M.S. Please see her excellent documentation from today's date for full details regarding the patient's presentation, physical exam, and plan. I agree with the documentation found in her note. Mrs. Damon is a very pleasant 52-year-old female that is well known to me. Recall she has an implant a Nevro spinal cord stimulator in the setting of chemotherapy-induced peripheral neuropathy. Thisis her three-month follow-up visit. Today in the office she reports that she is getting good relieffrom the stimulator during daytime hours. However she is struggling mightily with pain at night. She is tearful throughout today's visit. She is uncertain how much stimulator is helping her overall. There has been a distal lead migration of both leads since implantation. The leads are currently in the top of T10. We will recheck an x-ray today to verify that the leads have not migrated any further. She did very well during the trial and has not achieved the level of success during implant. Thisis quite frustrating for her. We did talk about the possibility of revising her system. Given that the leads were previously located over the typical areas that we would stimulate for feet coverage, I am not certain how effective a lead revision would be. I will follow up with her after I have reviewed the results of today's x-ray regarding further lead migration. Additionally, are never industrial sales representative will reprogrammed her device today. He remains optimistic that we have several programming options available to improve her coverage. On examination, her incisions are well healed. We will continue to work with the device, improve her programming and and consider revision if necessary. It wasnice to see her today. Please see the note by Alicia Frost for more information. 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
--- OUTSIDE RECORDS SUMMARY | 2023-04-16 11:34 | XMS_ITS | Encounter Summary ---
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 [facility] Referral ID Status Reason Start Date Expiration Date Visits Re quested Visits Authorized [id number] Closed 07/02/2022 07/02/2023 1 1 Encounter Details Date Type Department Care Team (Late st Contact Info) Description 09/09/2022 8:30 AM CDT Virtual Visit Division of Pain Medicine in [place], [place] [address] [place] [phone] Cam Bolaños M.D. Hollister, Jennifer M, R.N. 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 1 to 4 times per year 12/17/2021 Do you belong to any clubs o r organizations such as evangelical groups, unions, fraternal or athletic groups, or [...] [facility] of Occupat ionok Health - Occupational Stress Questionnaire Answer Date [...] Answer Date Recorded Employment status Unemployed/not in [employer] paid workforce and NOT seeking employment 12/17/2021 Housing Stability Answer Date Recorded What is your living situation today? I have a [facility] place to live 09/02/2022 Education Answer [...] as of this encounter Progress Notes * Shoshana Patel, R.N. - 09/09/2022 8:30 AM CDT Information Discussed Mrs. Damon was contacted to obtain a status report 6 weeks after having her Nevro SCS Implant. Are your procedural incisions related to this procedure healed, i.e., completely closed, no drainage, redness, swelling? Incisions are well healed. No issues with charging device. 2. What was your pain rating prior to spinal cord stimulator device implant? 12/31 3. What is your pain rating with spinal cord stimulator device implant? 08/31 4. What percentage of pain relief are you experiencing with spinal cord stimulator device implant? 80% during the day and 10% during the night 5. How has your daily dosing of medication previously taken to treat your pain changed since spinalcord stimulator device implant? Gabapentin and Cymbalta the same as prior to SCS 6. Functionally, what activities are you able to do (or do with less pain interference) compared toprior to spinal cord stimulator device implant? No different due to fatigue and activity restrictions 7. What percentage of functional improvement have you experienced with spinal cord stimulator device implant? None at this time due to fatigue and activity restrictions 8. Do you have any questions/concerns for your Pain Clinic Care Providers? None at this time PLAN Mrs. Damon is currently working through a program schedule and will reach out to us through the portal or by phone on 09/18 with an update. 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
--- OUTSIDE RECORDS SUMMARY | 2023-04-16 11:34 | XMS_ITS | Encounter Summary ---
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 [facility] Referral ID Status Reason Start Date Expiration Date Visits Re quested Visits Authorized [id number] Closed 07/02/2022 07/02/2023 1 1 Encounter Details Date Type Department Care Team (Latest Contact Info) Description 08/08/2022 10:54 AM CDT - 08/08/2022 11:59 PM CDT Hospital Encounter Department of Radiology, [facility], in [place], [place] [address] [place] [address] Cam Bolaños M.D. 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 1 to 4 times per year 12/17/2021 Do you belong to any clubs o r organizations such as advent groups, unions, fraternal or athletic groups, or [...] and heating? Not hard at all 12/17/2021 [facility] Occupat ional Health - Occupational Stress [...] place to sleep or slept in a senior care (including now)? 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 One lead has retraced one vertebral body height since 07/29/2022. Narrative 08/08/2022 11:38 AM CDT EXAM: ??DX THORACIC SPINE 2 VIEWS Procedure Note Costa Flores M.D. - 08/08/2022 EXAM: DX THORACIC SPINE 2 VIEWS IMPRESSION: Epidural leads at the level of T9-10. One lead has retraced one vertebralbody height since 07/29/2022. Cam Bolaños M.D. 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
--- OUTSIDE RECORDS SUMMARY | 2023-04-16 11:35 | XMS_ITS | Encounter Summary ---
Author Name Unknown Organization [facility] Address [address] [place] [address] Care Team Providers Care Land Surveying Party Chief Name Role Phone Unavailable Primary Care Provider Unavailabl e Encounter Details Date Type Department Care Team (Late st Contact Info) Description 06/03/2022 Documentation Division of Pain Medicine in [place], [place] [address] [place] [address] Yesenia Dunbar, R.N. Social History Tobacco Use [...] often do you attend chur ch or anabaptist services? 1 to 4 times per year 12/17/2021 Do you belong to any clubs o r organizations such as methodist groups, unions, fraternal or athletic groups, or [...] heating? Not hard at all 12/17/2021 [facility] Occupat ional Health - [...] place to sleep or slept in a mcc (including now)? No 12/17/2021 Nutrition Answer Date [...] Progress Notes * Yesenia Dunbar, R.N. - 06/03/2022 10:47 AM CDT Email from Elijah Quiros, after phone contact with Mrs. Damon on 06/01/22 and 06/02/22: I spoke with [facility] trial patient Samy PAZ 1970, below are the details: FRIDAY: Patient on P1, 5L ???I am doing miraculously well?? From 10pm to 1am, patient is feeling a slight burning in her arch, ???it is nothing compared to pre-stimulation?? Discussed making a change to stimulation down the road to try to capture middle of the night pain. No changes made to stimulation. FRIDAY: Friday evening patient fell backward while getting into a chair. Has some soreness on her back next to her spine. Relief still over 50% but notices her ???toes pulling toward my feet?? which is typical of her chronic pain prior to stimulation but she hasn't noticed since getting pain relief with stimulation. Plan to increase stimulation to P1, 6L and evaluate for 24 hours. documented in this encounter Plan of Treatment Not on file documented as of this encounter Visit Diagnoses Not on filedocumented in this encounter
--- OUTSIDE RECORDS SUMMARY | 2023-04-16 11:35 | XMS_ITS | Encounter Summary ---
Author Name Unknown Organization [facility] Address [address] [place] [id number] Care Team Providers Care Map And Chart Mounter Name Role Phone Unavailable Primary Care Provider Unavailabl e Reason for Visit * Auth/Cert (Routine) Specialty Diagnoses / Procedures Referred By Contac t Referred To Contact Diagnoses Polyneuropathy, unspecified intractable pain Procedures IN IMPL NEUROSTIM SAC NRV W IMG IN IMPL NEUROSTIM ELEC PERC EPI NEVRO TRIAL STIMULATOR SPINAL CORD Referral ID Status Reason Start Date Expiration Date Visits Re quested Visits Authorized [id number] 1 1 Encounter Details Date Type Department Care Team (Late st Contact Info) Description 05/30/2022 7:45 AM DRAMA TEACHER - 05/30/2022 9:13 AM DRAMA TEACHER [facility] in [place], [place] [address] [place] [phone] Ciaran Escobar M.D. [address] [place] [phone] NEVRO TRIAL STIMULATOR SPINAL CORD. Social History Tobacco Use Types Packs/Day Years [...] often do you attend chur ch or mosque services? 1 to 4 times per year [...] and heating? Not hard at all 12/17/2021 [facility] Occupat ional Health - [...] place to sleep or slept in a assisted (including now)? No 12/17/2021 Nutrition Answer Date [...] Sign Reading Time Taken Comments Blood Pressure 82/56 05/30/2022 9:04 AM DRAMA TEACHER Pulse 81 05/30/2022 9:04 AM DRAMA TEACHER Temperature 36.6 ??C (97.9 ??F) 05/30/2022 9:01 AM CS T Respiratory Rate 16 05/30/2022 9:04 AM DRAMA TEACHER Oxygen Saturation 94% 05/30/2022 9:04 AM DRAMA TEACHER Inhaled Oxygen Concentration - - Weight 92.3 kg (203 lb 7.8 oz) 05/30/2022 7:08 A M DRAMA TEACHER Height - - Body Mass Index 32.82 01/14/2018 7:50 AM CDT documented in this encounter Discharge Instructions * Discharge Instructions* Ciaran Escobar M.D. - 05/30/2022 7:57 AM DRAMA TEACHER Neuromodulation Trial Instructions Activity Restrictions Refrain from intense physical activity during the trial period Specific restrictions: Do not drive Do not lift over 5 pounds Do not raise your arms above your head Avoid bending and twisting at the waist Avoid jarring or high-impact movements Refrain from sexual activity Do not shower or bathe during the trial period Sponge baths are permissible Infection Prevention Monitor lead entry sites for signs of infection: Signs/symptoms: worsening pain, redness, swelling, temperature greater than 100.4F, yellow/green ormalodorous drainage from lead entry sites If any of the above are identified, call the Pain Clinic Nurse Contact Number or ???Anesthesia PainOutpatient Adult Doctor on-call?? via the [facility] Machinist Brake (phone: [phone]) Pain Control Continue prior chronic pain medication regimen as scheduled, unless instructed to make changes Avoid initiation of new pain medications during the trial Use ice packs 20 minutes on/off as needed for procedural pain Follow-Up Return to Pain Clinic on Post-Procedure Day 1 for check-up and Day 5-7 for trial discontinuation (specific dates will be provided to you by your surgical team) A TEACHER documented in this encounter Medications at Time [...] UNABLE TO FIND Adri - 500mg 0 mupirocin (BACTROBAN) 2 % ointmentIndications:Enc ounter For Other Specified Prophylactic Measures Apply 1 application topically 2 (two) times a day for 5 days. Apply pea-sized amount to both nostrils twice a day for five days before procedure. 22 g 0 07/02/2022 07/07/2022 citalopram (CeleXA) 10 mg tablet Take 10 mg by mouth daily. 0 06/06/2022 citalopram (CeleXA) 20 mg tablet Take 20 mg by mouth daily. 0 06/06/2022 clobetasol (TEMOVATE) 0.05 % ointment clobetasol 0.05 % topical ointment 0 06/06/2022 clobetasoL (TEMOVATE) 0.05 % ointment clobetasol 0.05 % topical ointment 0 06/06/2022 tacrolimus (PROTOPIC) 0.1 % ointment tacrolimus 0.1 % topical ointment 0 06/06/2022 tacrolimus (PROTOPIC) 0.1 % ointment tacrolimus 0.1 % topical ointment 0 06/06/2022 documented as of this encounter OR Notes * Op Note - Sumi Christine M.D. - 05/30/2022 8:21 AM CST Pre-op Diagnosis Neuropathy Peripheral-Chemotherapy Induced Post-op Diagnosis Neuropathy Peripheral A assistant professor of religion actively participated and was necessary for one or more of the following: opening, exposure and visualization during the case, maintaining hemostasis, wound closure resulting in itssafe and expeditious completion. Findings As expected. Complications None Operative Note Narrative Spinal Cord Stimulator Trial 2 Leads-Elijah Escobar is the supervisory physician and was present for the entirety of this operation. The patient was identified and evaluated in the preoperative holding area. Risks, benefits, alternatives, and team approach were discussed, and the pertinent surgical site was verified and marked with initials. The patient had an opportunity to ask questions, and wished to proceed. The patient was transported to the operating room, at which time they were placed in the prone position. Appropriate anesthetic care was provided without complication. The patient was then prepped and draped in usual sterile fashion.. A procedural pause was then conducted. Under fluoroscopic guidance, the T12-L1 interspace was identified. Additionally, the skin entry site was identified at the medial border of the pedicle one vertebral level lower and a jose d was placedon the overlying skin. Skin and subcutaneous tissues were anesthetized with local anesthetic. Usingfluoroscopy, a 25 smiley spinal needle was advanced to the inferior lamina and local anesthetic was administered along the needle path. The monitored anesthetic was then lightened allowing the patient to communicate clearly. Utilizing intermittent fluoroscopy, an epidural needle was then advanced toward the interlaminar space via a paramedian approach. Epidural access was obtained using the loss-of- resistance to technique. The epidural spinal cord stimulator lead was advanced without difficulty in the posterior epidural space to the top of T8. A second lead was placed using the exact same technique. Epidural access had to be revised to lateralize in the LEFT epidural space due to driving of the lead continued to go right at the level of the conus. The distal tip of the second lead was placed at top of T9. Stimulation was attempted in multiple combinations to provide adequate coverage of the patient's painful area. The stylets were removed. The needles were removed under fluoroscopic guidance to confirming no lead movement. The leads were fixed to the skin. A bio- occlusive dressing was applied. The anesthetic was discontinued. The patient was transferred from the operating table to the stretcher without difficulty. After appropriate amount of observation in the outpatient holding area, the patient was discharged. Technical Details Skin Preparation: Chlorhexidine Local anesthetic: 1:1 mixture of 1% lidocaine and 0.5% bupivacaine with 1:200,000 epinephrine Leads fixed to skin with: stayfix and tegaderm Intra-operative Medications Intra-op Medications Date/Time Order Dose Route Action Action by 05/30/2022 0812 DRAMA TEACHER ceFAZolin injection 2,000 mg (ANCEF) 2 g intravenous Given Moise Robins 05/30/2022 0821 DRAMA TEACHER RARwkhbtpra-suepdfjck-nlvokpqybtj 0.25%-0.5%-1:200,000 injection (ROBERT 2 alternative) 11 mL subcutaneous Given Vandana Christine 05/30/2022 0847 DRAMA TEACHER dexmedeTOMIDine 4 mcg/mL in NaCl 0.9% 100 mL infusion (PRECEDEX) 0 mcg/kg/hr intravenous Stopped Moise Robins 05/30/2022 0822 DRAMA TEACHER dexmedeTOMIDine 4 mcg/mL in NaCl 0.9% 100 mL infusion (PRECEDEX) 0.5 mcg/kg/hr intravenous Rate/Dose Change Moise Robins 05/30/2022 0807 DRAMA TEACHER dexmedeTOMIDine 4 mcg/mL in NaCl 0.9% 100 mL infusion (PRECEDEX) 0.4 mcg/kg/hr intravenous New Bag Moise Robins M.D. A TEACHER documented in this encounter Plan of Treatment Not on file documented as of this encounter Procedures Procedure Name Priority Date/Time Associated Diagnosis Comments FL FLUORO LESS THAN 1 HOUR RAD - Routine (most inpatients and all outpatients) 05/30/2022 8:51 AM DRAMA TEACHER TRIAL STIMULATOR SPINAL CORD 05/30/2022 7:40 AM DRAMA TEACHER Neuropathy Peripheral Case Notes Service: BendelPost-op orders: Family: , JeffRx: noneD/C plans: homegoingAssistive Devices: noneOther needs: documented in this encounter Results * FL Fluoro Less Than 1 Hour (05/30/2022 8:51 AM DRAMA TEACHER) Narrative [id number] - 05/30/2022 8:51 AM DRAMA TEACHER This exam does not require a radiologist review or interpretation. Please refer to the patient's medical record on this date for clinical details. Sumi Christine M.D. IMG FLUOROSCOPY PRO CEDURES [id number] NA documented in this encounter Visit Diagnoses Diagnosis Neuropathy Peripheral documented in this encounter Administered Medications Inactive Administered Medications - up to 3 most recent administrations Medication Order MAR Action Action Date Dose Rate Site acetaminophen tablet 1,000 mg (TYLENOL) 1,000 mg, oral, Once as needed, other, If patient has not received in the previous 6 hours, Starting on Selena 05/30/22 at 1037, For 1 dose, PACU (only), Oral unless RASS less than -1 or nausea/vomiting. Do not use if given in last 6 hours Given 05/30/2022 10:42 AM DRAMA TEACHER 1,000 mg BUPivacaine-lidocaine -epinephrine 0.25%-0.5%-1:200,000 injection (ROBERT 2 alternative) 100 mL, subcutaneous, Once, On Selena 05/30/22 at 0715, For 1 dose, Intra-Op, In OR used as local anesthetic Given 05/30/2022 8:21 AM DRAMA TEACHER 11 mL Back dexmedeTOMIDine 4 mcg/mL in NaCl 0.9% 100 mL infusion (PRECEDEX) 0.2-1.5 mcg/kg/hr ? 92.3 kg (4.615-34.6125 mL/hr, rounded to 4.61-34.61 mL/hr), intravenous, Continuous, Starting on Selena 05/30/22 at 0730, Intra-Op, 400 mcg in 100 mL, Initiate at: 0.2 mcg/kg/hr., Titrate at: Other, Titrate: Per Provider, Goal: Other, Goal: Per Provider, Restriction Criteria (Pharmacy will review and approve if criteria met): INITIATED and MAINTAINED only in patients in the operating rooms or in the intensive care unit Rate/Dose Change 05/30/2022 8:22 AM DRAMA TEACHER 0.5 mcg/kg/hr 11.538 mL/hr New Bag 05/30/2022 8:07 AM DRAMA TEACHER 0.4 mcg/kg/hr 9.23 mL/hr lactated ringers intravenous, Continuous Infusion: Per Instructions PRN, Starting on Selena 05/30/22 at 0757, Anesthesia Intra-op New Bag 05/30/2022 10:15 AM DRAMA TEACHER Continued from OR 05/30/2022 9:10 AM DRAMA TEACHER New Bag 05/30/2022 7:57 AM DRAMA TEACHER metoprolol tablet 12.5 mg (LOPRESSOR) 12.5 mg, oral, Once as needed, if patient did not take their last scheduled dose of beta juan prior to arrival, Starting on Selena 05/30/22 at 0639, For 1 dose, Pre- Op, Do not [...] intravenous, As needed, line care, Starting on Selena 05/30/22 at 0639, Pre- Op, Peripheral Intravenous Catheter and Rapid Infusion Catheter, prior to blood sampling, post blood transfusion or post blood sampling sodium chloride 0.9 % injection 3 mL 3 mL, intravenous, As needed, line care, Starting on Selena 05/30/22 at 0639, Pre-Op, Prior to and following infusion and between multiple consecutive infusions: sodium chloride 0.9 % injection sodium chloride 0.9 % injection 3 mL 3 mL, intravenous, Every 12 hours scheduled, First dose on Selena 05/30/22 at 0900, Pre-Op, Peripheral Intravenous Catheter and Rapid Infusion Catheter, when no infusion to maintain patency documented in this encounter Active and Recently Administered Medications Times are shown in DRAMA TEACHER. Scheduled Medication Order 05/28/2022 05/29/2022 05/30/2022 OPMtfmngkwb-cgnzkteou-ozdbmbmdljs 0.25%-0.5%-1:200,000 injection (ROBERT 2 alternative) (COMPLETED) 100 mL, subcutaneous, Once, On Selena 05/30/22 at 0715, For 1 dose, Intra-Op, In OR used as local anesthetic 0715 (Due)0821 (Give n - Provider: Sumi Christine M.D.) ceFAZolin injection 2,000 mg (ANCEF) (COMPLETED) 2,000 mg (rounded from 2,307.5 mg = 25 mg/kg ? 92.3 kg Dosing weight), intravenous, Once, On Selena 05/30/22 at 0715, For 1 dose, Intra-Op, Administer within 1 hour prior to surgical incision If needed, reconstitute vial per package insert instructions. See IVAG for administration guidelines. , Drug Monitoring Program: Pharmacist to adjust medication dosing based on indication and drug clearance factors., Indications: Prophylaxis, surgical 0812 (Given - Provid er: Briana Robins APRN, CRNA, GÓMEZ) lidocaine (PF) 10 mg/mL (1 %) injection 0.1 mL (XYLOCAINE) 0.1 mL, intradermal, Once, On Selena 05/30/22 at 0645, For 1 dose, Pre-Op, For IV Placement, Electric Bath Attendant, PreOp 0645 (Due) sodium chloride 0.9 % injection 3 mL 3 mL, intravenous, Every 12 hours scheduled, First dose on Selena 05/30/22 at 0900, Pre-Op, Peripheral Intravenous Catheter and Rapid Infusion Catheter, when no infusion to maintain patency 0900 (Due) Continuous Medication Order 05/28/2022 05/29/2022 05/30/2022 dexmedeTOMIDine 4 mcg/mL in NaCl 0.9% 100 mL infusion (PRECEDEX) 0.2-1.5 mcg/kg/hr ? 92.3 kg (4.615-34.6125 mL/hr, rounded to 4.61-34.61 mL/hr), intravenous, Continuous, Starting on Selena 05/30/22 at 0730, Intra-Op, 400 mcg in 100 mL, Initiate at: 0.2 mcg/kg/hr., Titrate at: Other, Titrate: Per Provider, Goal: Other, Goal: Per Provider, Restriction Criteria (Pharmacy will review and approve if criteria met): INITIATED and MAINTAINED only in patients in the operating rooms or in the intensive care unit 0807 (New Bag - Prov ider: Briana Robins APRN, CRNA, GÓMEZ)0822 (Rate/Dose Change - Provider: Briana Robins APRN, BISHOP, GÓMEZ)0847 (Stopped - Provider: Briana Robins APRN, CRNA, GÓMEZ) PRN Medication Order 05/28/2022 05/29/2022 05/30/2022 acetaminophen tablet 1,000 mg (TYLENOL) (COMPLETED)(Linked Group 1) 1,000 mg, oral, Once as needed, other, If patient has not received in the previous 6 hours, Starting on Selena 05/30/22 at 1037, For 1 dose, PACU (only), Oral unless RASS less than -1 or nausea/vomiting. Do not use if given in last 6 hours 1042 (Given - Provid er: Tashia Tatum R.N.) fentaNYL injection 25 mcg (SUBLIMAZE) 25 mcg, intravenous, Every 2 min PRN, For pain 4 or greater (maximum 100 mcg). If max dose of Fentanyl is reached and if pain is greater than 4, discontinue Fentanyl: give Hydromorphone, Starting on Selena 05/30/22 at 1037, PACU (only) granisetron (PF) injection 1 mg (KYTRIL) 1 mg, intravenous, Once as needed, nausea, vomiting, Starting on Selena 05/30/22 at 1037, For 1 dose, PACU (only), If patient does not respond to ondansetron or haloperidol. (order of antiemetic administration - ondansetron then haloperidol then granisetron) haloperidol lactate injection 1 mg (HALDOL) 1 mg, intravenous, Every 6 hours PRN, nausea, vomiting, Starting on Selena 05/30/22 at 1037, PACU (only), Total of 3 doses in 24 hour period. RASS must be -2 or higher to administer. If nausea and vomiting persists, move to granisteron. (order of antiemetic administration - ondansetron then haloperidol then granisetron) HYDROmorphone (PF) injection 0.2 mg (DILAUDID) 0.2 mg, intravenous, Every 5 min PRN, moderate pain or score 4-6 of 10, severe pain or score 7-10 of 10, Starting on Selena 05/30/22 at 1037, PACU (only), Up to maximum total dose of 2 mg lactated ringers (CANCELED) intravenous, Continuous Infusion: Per Instructions PRN, Starting on Selena 05/30/22 at 0757, Anesthesia Intra-op 0757 (New Bag - Prov ider: Briana Robins APRN, BISHOP, DNAP)0854 (Stopped - Provider: Briana Robins APRN, BISHOP, DNAP)0855 (Anesthesia Volume Adjustment - Provider: Briana Robins APRN, BISHOP, DNAP)0910 (Continued from OR - Provider: Tashia Tatum, R.N.)1015 (New Bag - Provider: Tashia Tatum R.N. - Comment: per dr hare for low bp)1132 (Stopped - Provider: Tashia Tatum R.N.) metoprolol tablet 12.5 mg (LOPRESSOR) 12.5 mg, oral, Once as needed, if patient did not take their last scheduled dose of beta juan prior to arrival, Starting on Selena 05/30/22 at 0639, For 1 dose, Pre-Op, Do not give if patient does not take scheduled beta blockers, if patient is receiving intravenous vasopressors or inotropes, if heart rate is less than 50 beats per minute, if systolic blood pressure is less than 90 mmHg or if diastolic blood pressure is less than 40 mmHg, or if patient has an allergy to metoprolol. ondansetron (PF) injection 4 mg (ZOFRAN) 4 mg, intravenous, Every 6 hours PRN, nausea, vomiting, (If patient has not received in the previous 6 hours), Starting on Selena 05/30/22 at 1037, PACU (only), Administer first. If nausea and vomiting persists, proceed with haloperidol. (order of antiemetic administration - ondansetron then haloperidol then granisetron) oxyCODONE IR tablet 10 mg (ROXICODONE) 10 mg, oral, Once as needed, For pain 4 or greater, Starting on Selena 05/30/22 at 1037, For 1 dose, PACU (only) sodium chloride 0.9 % injection 10 mL 10 mL, intravenous, As needed, line care, Starting on Selena 05/30/22 at 0639, Pre-Op, Peripheral Intravenous Catheter and Rapid Infusion Catheter, prior to blood sampling, post blood transfusion or post blood sampling sodium chloride 0.9 % injection 3 mL 3 mL, intravenous, As needed, line care, Starting on Selena 05/30/22 at 0639, Pre-Op, Prior to and following infusion and between multiple consecutive infusions: sodium chloride 0.9 % injection Linked Groups Order Group 1: acetaminophen tablet 1,000 mg (TYLENOL) (COMPLETED)Jump to med 1,000 mg, oral, Once as needed, other, If patient has not received in the previous 6 hours, Starting on Selena 05/30/22 at 1037, For 1 dose, PACU (only), Oral unless RASS less than -1 or nausea/vomiting. Do not use if given in last 6 hours Or acetaminophen injection 1,000 mg (COMPLETED) 1,000 mg, intravenous, at 400 mL/hr, Administer over 15 Minutes, Once as needed, other, If patient has not received in previous 6 hours, Starting on Selena 05/30/22 at 1037, For 1 dose, PACU (only), Oral unless RASS less than -1 or nausea/vomiting. Do not use if given in last 6 hours, Restriction Criteria (Pharmacy will review and approve if criteria met): Unable to take or tolerate medications administered via the enteral route or orally (not just NPO) documented in this encounter
--- OUTSIDE RECORDS SUMMARY | 2023-04-16 11:35 | XMS_ITS | Encounter Summary ---
Author Name Unknown Organization [facility] Address [address] [place] [address] Care Team Providers Care Play Back Operator Name Role Phone Unavailable Primary Care Provider Unavailabl e Reason for Visit * Outpatient (Routine) - Closed Specialty Diagnoses / Procedures Referred By Valerie cook Referred To Contact Diagnoses Pain Neuropathic Alex Goodwin M.D. [facility] Referral ID Status Reason Start Date Expiration Date Visits Re quested Visits Authorized [id number] Closed 04/24/2022 04/24/2023 1 1 Encounter Details Date Type Department Care Team (Late st Contact Info) Description 06/05/2022 10:00 AM CDT Virtual Visit Division of Pain Medicine in [place], [place] [address] [place] [address] Alex Goodwin M.D. Yesenia Dunbar, R.N. Pain Neuropathic Social History Tobacco Use Types Packs/Day Years [...] often do you attend chur ch or synagogue services? 1 to 4 times per year 12/17/2021 Do you belong to any clubs o r organizations such as gnosticist groups, unions, fraternal or athletic groups, or [...] all 12/17/2021 [facility] of Occupat ionms Health - Occupational Stress Questionnaire Answer Date [...] of this encounter Progress Notes * Yesenia Dunbar R.N. - 06/05/2022 10:00 AM CDT TELEPHONE CALL DOCUMENTATION PAIN CLINIC PROVIDER: Dr. Escobar PRIMARY IDENTIFIED PAIN AREA FOR NEUROMODULATION: bilateral foot neuropathic pain INCISION ASSESSMENT Patient denies any concern with lead insertion site, dressing or drainage. No signs of infection including redness, warmth, swelling or purulent drainage reported at this time. PAIN ASSESSMENT Patient reports that chronic pain is typically Pain 0-10: 10/10. With stimulation currently pain is Pain 0-10: 2/10 bilaterally. She stated yesterday was the best day I've had. Patient reports that procedural pain is Pain 0-10: 3/10. She stated she is utilizing intermittent icing and Tylenol. FUNCTIONAL GOALS 1) Sleep 7 hours without pain interference (before stim 5 hours interrupted multiple times by her pain) - Over 8 hours with no interruptions 2) Sit 45 minutes without pain interference (before stim, 0 minutes) - over an hour 3) Stand 30 minutes without pain interference (before stim, 0 minutes) - over 30 minutes while watching tv 4) Walk 30 minutes without pain interference (before stim, 0 minutes) - over 30 minutes 5) Recovery time of 60 minutes after activity (before stim, never recover) - 10 minutes EVALUATION OF TRIAL Patient notes a 80% improvement in pain, and 90% improvement in functionality. PROGRAMMING Received an email from Elijah Quiros, regarding this appointment which stated a rep was unavailable. Since the patient was getting between 70-90% improvement in pain and functionality on 06/04/22, he recommended to keep the patient on P1, 6L if improvement was stable. If patient has less than 50%, the Elijah reps will contact her with programming advice. Mrs. Damon verbalized understanding and agreement of the above. Mrs. Damon asked about the timeframe from trial conclusion to implant, and she was informed a surgical case will be opened for our predetermination team to review for insurance coverage, and typically this takes 4-6 weeks. She is concerned it will be like hamburger under the Tegaderm because her tape historically sticks to her skin. She is requesting the use of a wipe or spray to assist the process. This information will be provided to DOROTHY Mota, who will be ending the trial on 06/06/22. An opportunity for additional questions was provided, and Mrs. Damon denied having more at this time. She was encouraged to contact the Pain Clinic with future questions or concerns; or to bring them ready to discuss at her appointment on 06/06/22. FOLLOW UP Mrs. Damon will present to the Pain Clinic on 06/06/22 for the Trial Conclusion with DOROTHY Mota. She will be provided more information about the implant and the predetermination process during this appointment. Disposition/Recommendation: self-care appropriate at this time. The following references were used: nursing clinical judgement VISIT OUTCOME: Learner(s): Suma Damon Readiness to learn: Accepting Methods used for education: Explanation Learner(s) response: Patient/caregiver able to teach back If there are any ongoing questions or concerns Suma Damon will call the Pain Clinic RN coordinators at [phone]. [address] Escobar. Nursing time spend with Suma Damon: 30 minutes TOTAL TIME OF ORDERING OR SUPERVISING PROVIDERS DURING ENCOUNTER: 0 documented in this encounter Plan of Treatment Not on file documented as of this encounter Visit Diagnoses Diagnosis Pain Neuropathic documented in this encounter
--- OUTSIDE RECORDS SUMMARY | 2023-04-16 11:35 | XMS_ITS | Encounter Summary ---
Author Name Unknown Organization [facility] Address [address] [place] [address] Care Team Providers Care Delivery Clerk Name Role Phone Unavailable Primary Care Provider Unavailabl e Reason for Visit * Outpatient (Routine) - Canceled Specialty Diagnoses / Procedures Referred By Valerie t Referred To Contact Diagnoses Pain Neuropathic Alex Goodwin M.D. [facility] Referral ID Status Reason Start Date Expiration Date V isits Requested Visits Authorized [id number] Canceled 04/24/2022 04/24/2023 1 1 Encounter Details Date Type Department Care Team (Late st Contact Info) Description 05/20/2022 10:00 AM DICE MANAGER Virtual Visit Division of Pain Medicine in [place], [place] [address] [place] [address] Alex Goodwin M.D. Yesenia Dunbar, R.N. Pain [...] How often do you attend chur or roman catholic services? 1 to 4 times per year 12/17/2021 Do you belong to any clubs o r organizations such as jain groups, unions, fraternal or athletic groups, or [...] [facility] of Occupat ionor Health - Occupational Stress Questionnaire Answer Date [...] Progress Notes * Yesenia Dunbar, R.N. - 05/20/2022 10:00 AM CST ) contact was attempted. Patient did not answer, so voicemail was left asking tocheck for a portal message with instructions to respond. MANAGER documented in this encounter Plan of Treatment Not on file documented as of this encounter Visit Diagnoses Diagnosis Pain Neuropathic documented in this encounter
--- OUTSIDE RECORDS SUMMARY | 2023-04-16 11:35 | XMS_ITS | Encounter Summary ---
Author Name Unknown Organization [facility] Address [address] [place] [address] Care Team Providers Care Corporate Fitness Program Coordinator Name Role Phone Unavailable Primary Care Provider Unavailabl e Reason for Visit * Outpatient (Routine) - Closed Specialty Diagnoses / Procedures Referred By Valerie cook Referred To Contact Diagnoses Pain Neuropathic Alex Goodiwn M.D. [facility] Referral ID Status Reason Start Date Expiration Date Visits Re quested Visits Authorized [id number] Closed 04/24/2022 04/24/2023 1 1 Encounter Details Date Type Department Care Team (Late st Contact Info) Description 06/04/2022 10:00 AM CDT Virtual Visit Division of Pain Medicine in [place], [place] [address] [place] [address] Alex Goodwin M.D. Yesenia Dunbar, R.N. Pain [...] often do you attend chur ch or amish services? 1 to 4 times per year [...] and heating? Not hard at all 12/17/2021 [facility] of Occupat ionwv Health - Occupational Stress Questionnaire Answer Date [...] place to sleep or slept in a nursing home (including now)? No 12/17/2021 Nutrition Answer Date [...] Progress Notes * Yesenia Dunbar R.N. - 06/04/2022 10:00 AM CDT TELEPHONE CALL DOCUMENTATION PAIN [...] With stimulation currently pain is Pain 0-10: 1/10 on average for bilateral feet. She denied havinglightning bolt pains. Patient reports that procedural pain is Pain 0-10: 2/10, utilizing tylenol. FUNCTIONAL GOALS 1) Sleep 7 hours without pain interference (before stim 5 hours interrupted multiple times by her pain) - 8 hours uninterrupted 2) Sit 45 minutes without pain interference (before stim, 0 minutes) - 60 minutes 3) Stand 30 minutes without pain interference (before stim, 0 minutes) - 30 minutes with no pain 4) Walk 30 minutes without pain interference (before stim, 0 minutes) - 30 minutes 5) Recovery time of 60 minutes after activity (before stim, never recover) - 10 minutes EVALUATION OF TRIAL Patient notes a 90% improvement in pain, and 70% improvement in functionality. PROGRAMMING Nevro Spinal cord stimulator trial status report, ELVIN Walters present on phone call. Patient will be advised to remain on P1, 6L. An opportunity for questions was provided, and Mrs. Damon denied having any at this time. FOLLOW UP RN will follow up with patient 06/05/22 for the conference call. Disposition/Recommendation: self-care appropriate at this time. The following references were used: nursing clinical judgement VISIT OUTCOME: Learner(s): Suma Damon Readiness to learn: Accepting Methods used for education: Explanation Learner(s) response: Patient/caregiver able to teach back If there are any ongoing questions or concerns Suma Damon will call the Pain Clinic RN coordinators at [phone]. Review[address] Escobar. Nursing time spend with Suma Damon: 20 minutes TOTAL TIME OF ORDERING OR SUPERVISING PROVIDERS DURING ENCOUNTER: 0 documented in this encounter Plan of Treatment Not on file documented as of this encounter Visit Diagnoses Diagnosis Pain Neuropathic documented in this encounter
--- OUTSIDE RECORDS SUMMARY | 2023-04-16 11:35 | XMS_ITS | Encounter Summary ---
Author Name Unknown Organization [facility] Address [address] [place] [address] Care Team Providers Care Dry Mixer Name Role Phone Unavailable Primary Care Provider Unavailabl e Reason for Visit * Auth/Cert (Routine) Specialty Diagnoses / Procedures Referred By Contac t Referred To Contact Diagnoses Polyneuropathy, unspecified intractable pain Procedures WI IMPL NEUROSTIM SAC NRV W IMG WI IMPL NEUROSTIM ELEC PERC EPI NEVRO TRIAL STIMULATOR SPINAL CORD Referral ID Status Reason Start Date Expiration Date Visits Re quested Visits Authorized [id number] 1 1 Encounter Details Date Type Department Care Team (Late st Contact Info) Description 05/30/2022 7:57 AM ROCK CRUSHER Anesthesia Event Outpatient Procedure Center in [place], [place] [address] [place] [phone] Briana Robins APRN, CRNA, DNAP [address] [place] [phone] Kishore Zepeda M.D. [address] [place] [phone] Anesthesia Record Procedure Summary Procedure Name Responsible Anesthesiologist Anesthesia Start Time Anesthesia Stop Time NEVRO TRIAL STIMULATOR SPINAL CORD. (Posterior: Back) Briana Robins APRN, CRNA, DNAP 05/30/22 0757 05/30/22 0856 Events Date Time Event Comment 05/30/2022 0777 0757 An Start Machine/Equipme nt Checked Infection Precautions Followed Procedure/Site Verified NPO Status Verified Supine Standard ASA Monitors Applied 0802 Turnover to Proceduralist 0821 Proc Start 0851 Proc Fin 0851 Turnover to ANE Staff 0855 an stop data 0856 An End I completed my handoff to [...] mg/mL 2 mg fentanyl injection 50 mcg/mL 50 mcg ondansetron PF 4 mg/2 mL injection 4 mg dexmedeTOMIDine 4 mcg/mL in NaCl 0.9% 10 0 mL infusion (PRECEDEX) 28.46 mcg dexmedeTOMIDine (PRECEDEX) bolus from ba g 32 mcg ceFAZolin injection 2,000 mg (ANCEF) 2 g Lactated Ringers Free Drip 1,000 mL * Agents No agents on file. * Blood No blood administrations on file. Lines, Drains, and Airways Type Details Placement Removal Wound 05/30/22; 0837; N; Medial 0837 by Carlotta Caldwell RStephanN. Peripheral IV Placement Date: 12/14; Placement Time: 07; Catheter Size: 22 G; Orientation: Right, Posterior; Location: Hand; Site Prep: Alcohol; Removal Date: 05/30/22; Removal Time: 113; Removal Reason: Patient discharged 05/30/22 0710 by Tashia Tatum, R.N. 05/30/22 1132 by Tashia Tatum RStephanN. documented in this encounter Social History Tobacco [...] often do you attend chur ch or nondenominational services? 1 to 4 times per year [...] and heating? Not hard at all 12/17/2021 [facility] of Occupat ional Health - Occupational [...] place to sleep or slept in a fci (including now)? No 12/17/2021 Nutrition Answer Date [...] OR Notes * Anesthesia Postprocedure Evaluation - Briana Robins, UTE, FIRST AID NURSE, DNAP - 05/30/2022 8:59 AM CST Patient: Suma Damon Procedure Summary Date: 05/30/22 Room / Location: [place] [id number] / [facility] in [place], [place] Anesthesia Start: 0757 Anesthesia Stop: 855 Procedure: NEVRO TRIAL STIMULATOR SPINAL CORD. 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 Responsible Provider: Briana Robins APRN, CRNA, DNAP Anesthesia Type: MAC ASA Status: 2 Anesthesia Type: MAC Last vitals Vitals Value Taken Time BP Temp Pulse Resp SpO2 Please reference Vitals flowsheet for most recent vital signs. Anesthesia Post Evaluation Patient Disposition: dismissal Cardiovascular status: hemodynamics (HR & BP) acceptable Respiratory status: patent airway with spontaneous effort Temperature: normothermic Oxygen requirements: room air Level of consciousness: awake Pain score: pain adequately controlled and/or at baseline Post Op nausea/vomiting: none Hydration status: euvolemic CRUSHER * Anesthesia Preprocedure Evaluation - Kishore Zepeda M.D. - 05/30/2022 7:26 AM CST Preprocedure Anesthesia & H&P Assessment Procedure Summary Date/Time: 05/30/22 0745 Procedure: NEVRO TRIAL STIMULATOR SPINAL CORD. (Posterior: Back) Diagnosis: Neuropathy Peripheral [G62.9] Pre-op diagnosis: Chemotherapy induced peripheral neuropathy. Location: [address] in [place], [place] Surgeons: Ciaran Escobar M.D. Pertinent components [...] problems OBJECTIVE PHYSICAL EXAMINATION Airway (HEENT) Mallampati: II TM Distance: >3 FB Neck ROM: Full [...] with patient /legal guardian or through an book binder. Risks/Benefits/Alternatives of Blood transfusion discussed with patient / legal guardian, includingan opportunity to ask questions and/or decline some or all transfusion therapies. The patient / legal guardian consented to the use of all blood products, as deemed medically necessary Approval to Proceed: approved for anesthesia CRUSHER documented in this encounter Plan of Treatment Not on file documented as of this encounter Visit Diagnoses Not on filedocumented in this encounter Administered Medications Inactive Administered Medications - up to 3 most recent administrations Medication Order MAR Action Action Date Dose Rate Site ceFAZolin injection 2,000 mg (ANCEF) 2,000 mg (rounded from 2,307.5 mg = [...] drug clearance factors., Indications: Prophylaxis, surgical Given 05/30/2022 8:12 AM ROCK CRUSHER 2 g dexmedeTOMIDine 4 mcg/mL in NaCl [...] care unit Rate/Dose Change 05/30/2022 8:22 AM ROCK CRUSHER 0.5 mcg/kg/hr 11.538 mL/hr New Bag 05/30/2022 8:07 AM ROCK CRUSHER 0.4 mcg/kg/hr 9.23 mL/hr dexmedeTOMIDine bolus from bag (PRECEDEX) intravenous, Administer over 10 Minutes, As needed, Starting on Selena 05/30/22 at 0802, Anesthesia Intra-op Given 05/30/2022 8:02 AM ROCK CRUSHER 32 mcg fentaNYL injection (SUBLIMAZE) intravenous, As needed, Starting on Selena 05/30/22 at 0817, Anesthesia Intra-op Given 05/30/2022 8:17 AM ROCK CRUSHER 50 mcg lactated ringers intravenous, Continuous Infusion: Per Instructions PRN, Starting on Selena 05/30/22 at 0757, Anesthesia Intra-op New Bag 05/30/2022 10:15 AM ROCK CRUSHER Continued from OR 05/30/2022 9:10 AM ROCK CRUSHER New Bag 05/30/2022 7:57 AM ROCK CRUSHER midazolam (PF) injection (VERSED) intravenous, As needed, Starting on Selena 05/30/22 at 0811, Anesthesia Intra-op Given 05/30/2022 8:11 AM ROCK CRUSHER 2 mg ondansetron (PF) injection (ZOFRAN) intravenous, As needed, Starting on Selena 05/30/22 at 0826, Anesthesia Intra-op Given 05/30/2022 8:26 AM ROCK CRUSHER 4 mg documented in this encounter
--- OUTSIDE RECORDS SUMMARY | 2023-04-16 11:35 | XMS_ITS | Encounter Summary ---
Author Name Unknown Organization [facility] Address [address] [place] [address] Care Team Providers Care Flight Operations Coordinator Name Role Phone Unavailable Primary Care Provider Unavailabl e Encounter Details Date Type Department Care Team (Late st Contact Info) Description 07/19/2022 Clinical Communication Division of Pain Medicine in [place], [place] [address] [place] [address] Yesenia Dunbar, R.N. Social History Tobacco Use [...] often do you attend chur ch or mandaen services? 1 to 4 times per year 12/17/2021 Do you belong to any clubs o r organizations such as catholic groups, unions, fraternal or athletic groups, [...] and heating? Not hard at all 12/17/2021 [facility] of Occupat ional Health - Occupational [...] place to sleep or slept in a halfway (including now)? No 12/17/2021 Nutrition Answer Date Recorded Nutrition: EVOO Fat Source Yes 12/17 On average, how many serving s of fruits and vegetables do you eat per day (serving size is equal to 1 cup or approximately the size of a tennis ball)? 4-5 12/17/2021 Dental Answer Date Recorded Dental: Regular Dentist Yes 12/18/19 Employment Answer Date Recorded Employment status Unemployed/not in [employer] paid workforce and NOT seeking employment 12/17/2021 [...] encounter Miscellaneous Notes * Telephone Encounter - Yesenia Dunbar R.N. - 07/19/2022 10:28 AM CDT Information Discussed Mrs. Damon was contacted via phone to discuss preprocedure instructions for the upcoming spinal cord stimulator implant currently scheduled on 07/29/22. The following information was discussed: With the positive test result for Staph aureus, a provider will prescribe mupirocin. This is an ointment that will decrease the risk of infection from this microorganism. Apply a pea-sized amount in each nostril both morning and night for five days before the procedure (with the procedure being thesixth day). Preprocedure Instructions: Please contact the Pain Clinic RN coordinators ([phone]) Friday-Friday 8AM- 4PM if you have questions/concerns, develop an infection, illness, fever or require antibiotics within 7 days of your scheduled procedure. After hours and weekends, contact the [facility] tapper operator ([phone]) and ask for 'Anesthesia Pain Outpatient Adult Doctor On-Call' or Pain Fellow Service Pager [phone]. If you are taking any medication that has the potential to thin your blood, such as an anticoagulant, aspirin, or NSAID, please notify your pain clinic team for specific instructions. A decision to stop this medication before your procedure will be made with input from you, the doctor prescribing the medication, and your Pain Clinic physician. See a list of these medications included in the ???Checklist for Surgical Patients?? [id number]. Mrs. Damon confirmed she does not take anticoagulants or other blood thinning medications. Using antiseptic soap provided in Pain Clinic pre-procedure kit on a sponge/washcloth scrub, then rinse and dry the front and back of your trunk (from your shoulders through your groin) the night before and morning of procedure. Mrs. Damon confirmed she has Hibiclens within her possession. Call the phone number listed in the ???Checklist for Surgical Patients?? [id number] between 8:15 pmand midnight the evening prior to your procedure. You will be instructed as to the time of day you need to report to [address] for your procedure. Their telephone numbers are: or [phone]. Back up phone number is [phone] Follow Fasting Instructions included in the ???Checklist for Surgical Patients?? [id number]. The fasting information from this brochure was read with the patient. Mrs. Damon confirmed she has never been diagnosed with diabetes. Immediately after your procedure in the post op area it is important for you to ask your nurse for ice to help with your procedural pain. You are advised to continue ice use as needed for procedural pain, 20 minutes on, 20 minutes off making sure to protect your skin. It is recommended that you wear loose-fitting clothes/shoes are easy to get on and off due to activity restrictions. These include not raising your arms above your shoulders and avoid bending, twisting or movements that could affect the lead placement. The complete list of activity restrictions will be reviewed by the nurse at your Pain Clinic appointment after the procedure. Someone must accompany you, as you will be unable to drive immediately following the procedure. Most procedures are planned as an outpatient procedure, but you should bring clothes/personal itemsto stay overnight in the hospital if necessary. Please remember to brush your teeth the morning of the procedure. Evidence based practice shows this to assist in lowering post-op infections. Mrs. Damon verbalized understanding and agreement with the above information. An opportunity for questions was provided, and Mrs. Damon denied having any at this time. Mrs. Damon stated that after she was scheduled she was contacted by a study director. She was informed Radha Valdivia is the study director of the study of Chemo-Induced Peripheral Neuropathy in conjunction with treatment by spinal cord stimulator. Typically Radha meets with the patient the morning of the procedure to discuss and obtain consent; however, he may need to contact her with additional information beforehand. Mrs. Damon stated she is interested in taking part of the study and would like to further discuss (can be morning of or beforehand via phone, whichever Radha needs). This information will be provided to Radha. Mrs. Damon was encouraged to contact the Pain Clinic with future questions or concerns. PLAN Disposition/Recommendation: recommended continue engagement in self-management activities Information/Education: patient/caller able to teach back Caller agreeable to plan of care: yes The following references were used: nursing clinical judgement; Radha Valdivia documented in this encounter Plan of Treatment Not on file documented as of this encounter Visit Diagnoses Diagnosis Encounter For Other Specified Prophylactic Measures- Primary documented in this encounter
--- OUTSIDE RECORDS SUMMARY | 2023-04-16 11:35 | XMS_ITS | Encounter Summary ---
Author Name Unknown Organization [facility] Address [address] [place] [address] Care Team Providers Care Astro Technician Name Role Phone Unavailable Primary Care Provider Unavailabl e Reason for Visit * Outpatient (Routine) - Closed Specialty Diagnoses / Procedures Referred By Valerie cook Referred To Contact Diagnoses Pain Neuropathic Alex Goodwin M.D. [facility] Referral ID Status Reason Start Date Expiration Date Visits Re quested Visits Authorized [id number] Closed 04/24/2022 04/24/2023 1 1 Encounter Details Date Type Department Care Team (Late st Contact Info) Description 06/03/2022 10:00 AM CDT Virtual Visit Division of Pain Medicine in [place], [place] [address] [place] [address] Alex Goodwin M.D. Yesenia Dunbar, R.N. Pain [...] and heating? Not hard at all 12/17/2021 [facility] Health - Occupational Stress Questionnaire Answer Date [...] place to sleep or slept in a long term (including now)? No 12/17/2021 Nutrition Answer Date [...] Progress Notes * Yesenia Dunbar R.N. - 06/03/2022 10:00 AM CDT TELEPHONE CALL DOCUMENTATION PAIN [...] With stimulation currently pain is Pain 0-10: 0/10 for right foot, 3/10 for left foot. The lightning bolt pain returned, multiple times. She had occur overnight. She stated historically this was constant, but currently it would grow and increase to a boom. She felt there is improvement with this type of pain. Patient reports that procedural pain is Pain 0-10: 3/10; she rated this pain a 1/10 before falling into her chair and hitting the Yeti. She believes this increased pain is from the fall. She reported that she fell back in her chair on 06/01/22 as she was backing into her recliner. Tiffanyti was behind her which hit her near the spinal column. She used intermittent icing and Tylenol to relieve the pain that this caused. She stated she had concerns on Friday night that the stimulator was not on. She had increased chronic pain on 06/02/22 as well. She stated that she was doing so well that she was not thinking about restrictions. Since Ms. Damon has maintained >50% improvement, lead placement is not necessarily a concern. FUNCTIONAL GOALS 1) Sleep 7 hours without pain interference (before stim 5 hours interrupted multiple times by her pain) - 7 hours, waking up once last night 2) Sit 45 minutes without pain interference (before stim, 0 minutes) - 45 minutes 3) Stand 30 minutes without pain interference (before stim, 0 minutes) - more comfortable to stand than to even sit - 10 minutes - she reported that she forgot she was supposed to be testing this activity, and she plans on testing this more today 4) Walk 30 minutes without pain interference (before stim, 0 minutes) - did not attempt within the last 24 hours due to back pain from falling - she plans on going for a walk today 5) Recovery time of 60 minutes after activity (before stim, never recover) - 20 minutes EVALUATION OF TRIAL Patient notes a 80-90% improvement in pain, and 80% improvement in functionality. PROGRAMMING Nevro Spinal cord stimulator trial status report, ELVIN Walters present on phone call. Patient will be advised to remain on P1, 6L for the next 24 hours. It was reiterated that stimulation will not take away all of the pain, the goal being =/>50% improvement in pain and functionality. FOLLOW UP RN will follow up with patient 06/04/22 for phone call appointment. Disposition/Recommendation: self-care appropriate at this time. The following references were used: nursing clinical judgement VISIT OUTCOME: Learner(s): Suma Damon Readiness to learn: Accepting Methods used for education: Explanation Learner(s) response: Patient/caregiver able to teach back If there are any ongoing questions or concerns Suma Damon will call the Pain Clinic RN coordinators at [phone]. Reviewed [address] Escobar. Nursing time spend with Suma Damon: 30 minutes TOTAL TIME OF ORDERING OR SUPERVISING PROVIDERS DURING ENCOUNTER: 0 documented in this encounter Plan of Treatment Not on file documented as of this encounter Visit Diagnoses Diagnosis Pain Neuropathic documented in this encounter
--- OUTSIDE RECORDS SUMMARY | 2023-04-16 11:35 | XMS_ITS | Encounter Summary ---
Author Name Unknown Organization [facility] Address [address] [place] [address] Care Team Providers Care Ring Rolling Machine Operator Name Role Phone Unavailable Primary Care Provider Unavailabl e Reason for Visit * Outpatient (Routine) - Closed Specialty Diagnoses / Procedures Referred By Contrachael t Referred To Contact Diagnoses Pain Neuropathic Procedures PM Stimulator Reprogramming Alex Goodwin M.D. [facility] Referral ID Status Reason Start Date Expiration Date Visits Re quested Visits Authorized [id number] Closed 04/24/2022 04/24/2023 1 1 Encounter Details Date Type Department Care Team (Latest Contact Info) Description 06/06/2022 10:00 AM CDT Procedure visit Division of Pain Medicine in [place], [place] [address] [place] [address] Alex Goodwin M.D. Rose, Kelsey L, R.N. Pain Neuropathic (Primary Dx) Social History Tobacco Use Types Packs/Day Years [...] often do you attend chur ch or methodist services? 1 to 4 times per year 12/17/2021 Do you belong to any clubs o r organizations such as scientologist groups, unions, fraternal or athletic groups, or [...] and heating? Not hard at all 12/17/2021 [facility]at ionwi Health - Occupational Stress Questionnaire Answer Date [...] to sleep or slept in a senior living (including now)? No 12/17/2021 Nutrition Answer Date [...] Sign Reading Time Taken Comments Blood Pressure 135/93 06/06/2022 9:57 AM CDT Pulse 82 06/06/2022 9:57 AM CDT Temperature 36.8 ??C (98.2 ??F) 06/06/2022 9:57 AM CD T Respiratory Rate - - Oxygen Saturation - - Inhaled Oxygen Concentration - - Weight - - Height - - Body Mass Index - - documented in this encounter Consult Notes * Svetlana Holley R.N. - 06/06/2022 10:00 AM CDT CLINIC VISIT PROVIDER: Dr. Escobar PRIMARY IDENTIFIED PAIN AREA FOR NEUROMODULATION: bilateral foot neuropathic pain (chemo induced) PAIN RATING: Pain 0-10: 0/10 Patient presented for nursing education regarding Nevro spinal cord stimulator neuromodulation as requested by Dr. Escobar. Patient was given Pain Clinic pre- procedure kit including: contact card for Pain Clinic RN Coordinator, chlorhexidine soap, printed copy of Pain Clinic Pre-Procedure Instructions for Neuromodulation Procedures, Checklist for Surgical Patients [id number], Surgical Site Infection: Reducing Your Risk [id number],Neurostimulation [id number], Nevro HF10 trademark 2017. The educational PowerPoint was viewed and discussed, including the following topics: the procedure,related appointments, predetermination and possible insurance coverage, activity restrictions, and review of current functioning with creation of functional goals. The Nevro device was viewed. FUNCTIONAL GOALS: 1) Sleep 7 hours without pain interference (before stim 5 hours interrupted multiple times by her pain) - Sleeping soundly throughout the night. 8 hours. 2) Sit 45 minutes without pain interference (before stim, 0 minutes) - over an hour 3) Stand 30 minutes without pain interference (before stim, 0 minutes) +30 minutes 4) Walk 30 minutes without pain interference (before stim, 0 minutes) +30 minutes 5) Recovery time of 60 minutes after activity (before stim, never recover) - 5-10 minutes Patient assessed for the following: Use of anticoagulants, including NSAIDs and aspirin: Diabetes status: Most recent A1C (date and result): Predetermination for procedure was started by RN as indicated. PROTOCOL: Patient was assessed per Pain Medicine Pre-Implant Screening Protocol #[id number] 1391. Patient to receive an implant of a spinal cord stimulator . Patient meets inclusion criteria. Patient has no exclusion criteria. Patient is scheduled for surgery greater than 7 days. Obtained Nasal (micro) - Staphylococcus aureus PCR (47027) and awaiting results. FOLLOW UP RN will follow up with patient with any Pre-Determination responses. Disposition/Recommendation: self-care is appropriate at this time. The following references were used: nursing clinical judgement, SCS implant PowerPoint presentation VISIT OUTCOME: Learner(s): Suma Damon Readiness to learn: Eager and Accepting Methods used for education: Explanation, Demonstration, and Presentation Learner(s) response: Patient/caregiver able to teach back If there are any ongoing questions or concerns Sumagissel Reynoso Damon will call the Pain Clinic RN coordinators at [phone]. [address] Escobar. Nursing time spend with Suma Angeles Damon: 1 hour TOTAL TIME OF ORDERING OR SUPERVISING PROVIDERS DURING ENCOUNTER: 0 documented in this encounter Plan of Treatment Not on file documented as of this encounter Procedures Procedure Name Priority Date/Time Associated Diagnosis Comments MRSA/STAPHYLOCOCCUS AUREUS, NASAL, BY PCR Routine 06/06/2022 6:17 PM CDT Pain Neuropathic documented in this encounter Results * (ABNORMAL) Staph aureus/MRSA, Nasal, PCR (06/06/2022 6:17 PM CDT) Staphylococcus aureus, PCR Positive(A) Negative 06/07/2022 12:15 AM CDT DTL MRSA, PCR Negative Negative 06/07/2022 12:15 AM CDT DTL Comment: Methicillin (oxacillin)-susceptible Staphylococcus aureus complex detected. Swab (Nares) 06/06/2022 6:17 PM CDT 06/06/2022 6:17 PM CDT Jaqueline Quintanilla M.D., Ph.D. LAB MICROBIOLOGY - GENERAL ORDERABLES [facility] [address] [place] [address], [facility] DTL [facility] [address] [place] [address] documented in this encounter Visit Diagnoses Diagnosis Pain Neuropathic- Primary documented in this encounter
--- OUTSIDE RECORDS SUMMARY | 2023-04-16 11:35 | XMS_ITS | Encounter Summary ---
Author Name Unknown Organization [facility] Address [address] [place] [address] Care Team Providers Care Clutch Mechanic Name Role Phone Unavailable Primary Care Provider Unavailabl e Reason for Visit * Outpatient (Routine) - Closed Specialty Diagnoses / Procedures Referred By Contac t Referred To Contact Diagnoses Pain Neuropathic Procedures PM Stimulator Reprogramming Alex Goodwin M.D. [facility] Referral ID Status Reason Start Date Expiration Date Visits Re quested Visits Authorized [id number] Closed 04/24/2022 04/24/2023 1 1 Encounter Details Date Type Department Care Team (Late st Contact Info) Description 05/31/2022 10:00 AM RETAIL ASSISTANT MANAGER Procedure visit Division of Pain Medicine in [place], [place] [address] [place] [address] Alex Goodwin M.D. Yesenia Dunbar, R.N. Pain [...] How often do you attend chur or pentecostal services? 1 to 4 times per year 12/17/2021 Do you belong to any clubs o r organizations such as jew groups, unions, fraternal or athletic groups, or [...] and heating? Not hard at all 12/17/2021 [facility] of Occupat ionky Health - Occupational Stress Questionnaire Answer Date [...] place to sleep or slept in a long-term (including now)? No 12/17/2021 Nutrition Answer Date [...] Sign Reading Time Taken Comments Blood Pressure 139/99 05/31/2022 9:44 AM RETAIL ASSISTANT MANAGER Pulse 76 05/31/2022 9:44 AM RETAIL ASSISTANT MANAGER Temperature 37 ??C (98.6 ??F) 05/31/2022 9:44 AM RETAIL ASSISTANT MANAGER Respiratory Rate - - Oxygen Saturation - - Inhaled Oxygen Concentration - - Weight 92.3 kg (203 lb 7.8 oz) 05/31/2022 9:44 A M RETAIL ASSISTANT MANAGER Height 167.7 cm (5' 6.02) 05/31/2022 9:44 AM CS T Body Mass Index 32.82 05/31/2022 9:44 AM RETAIL ASSISTANT MANAGER documented in this encounter Progress Notes * Yesenia Dunbar, RStephanN. - 05/31/2022 10:00 AM CST PAIN CLINIC PROVIDER:Dr. Escobar PRIMARY IDENTIFIED PAIN AREA FOR NEUROMODULATION: bilateral food neuropathic errol PERTINENT SURGICAL HISTORY: Suma Damon has a past surgical history that includes Nevro spinal cord stimulator trial (05/30/22) Suma Damon presents days post op: 1 after trial of Nevro neurostimulator. Mrs. Damon and her presented for today's appointment. PAIN ASSESSMENT Patient reports that chronic pain is typically Pain 0-10: 10/10. Historically she has experienced electrocution symptoms associated with the pain, frequency of a couple times per day. She denied exacerbating factors, but chronic pain is worse in the evening. With stimulation currently pain is Pain 0-10: 0/10. She denied having any of the electrocution symptoms. Patient reports that procedural pain is Pain 0-10: 0/10. She is taking Tylenol as needed and intermittent icing. FUNCTIONAL GOALS - TBD 1) Sleep 7 hours without pain interference (before stim 5 hours interrupted multiple times by her pain) - she reported the best night of sleep in recent years 2) Sit 45 minutes without pain interference (before stim, 0 minutes) 3) Stand 30 minutes without pain interference (before stim, 0 minutes) 4) Walk 30 minutes without pain interference (before stim, 0 minutes) - she stated she walks the dogs every day for half an hour; deconditioning of muscles was discussed 5) Recovery time of 60 minutes after activity (before stim, never recover) EVALUATION OF TRIAL Patient notes a TBD improvement in pain, and TBD improvement in functionality. A paper copy of the functional goals and corresponding appointments was provided to the patient. PROGRAMMING ELVIN Walters admitting representative was present for analysis and impedance check of neurostimulator.Programming and remote use were reviewed with patient. Parameters addressed: *Amplitude - no *Electrode Array - no *Pulse Width - no *Rate - no Patient left today's appointment on P1, 5L. HOMECARE INSTRUCTIONS Activity Restrictions Refrain from intense physical activity during the trial period Specific restrictions: Do not drive Do not lift over 5 pounds Do not raise your arms above your head Avoid bending and twisting at the waist Avoid jarring or high-impact movements Refrain from sexual activity Do not shower or bathe during the trial period Sponge baths are permissible Reinforce Tegaderm dressing if edges start to curl. Additional Tegaderm dressings were provided. Infection Prevention Monitor lead entry sites for signs of infection: Signs/symptoms: worsening pain, redness, swelling, temperature greater than 100.4F, yellow/green ormalodorous drainage from lead entry sites If any of the above are identified, call the Pain Clinic Nurse Contact Number or ???Anesthesia PainOutpatient Adult Doctor on-call?? via the [facility] Shelter Director (phone: [phone]) Pain Control Continue prior chronic pain medication regimen as scheduled, unless instructed to make changes Avoid initiation of new pain medications during the trial Use ice packs 20 minutes on/off as needed for procedural pain Follow-Up Return to Pain Clinic Day 5-7 for trial discontinuation (specific dates will be provided to you by your surgical team) PROCEDURE SITE ASSESSMENT Upon inspection dressing was intact with minimal serosanguinous drainage. No drainage noted beyond Tegaderm perimeter. No signs of infection including redness, warmth, swelling or purulent drainage noted at this time. FOLLOW UP RN will follow up with patient 06/03/22 Disposition/Recommendation: self-care appropriate at this time. The following references were used: nursing clinical judgement VISIT OUTCOME: Learner(s): Suma Damon Readiness to learn: Accepting Methods used for education: Explanation Learner(s) response: Patient/caregiver able to teach back If there are any ongoing questions or concerns Suma Damon will call the Pain Clinic RN coordinators at [phone]. [address] Escobar. Nursing time spend with Suma Damon: 1 hour TOTAL TIME OF ORDERING OR SUPERVISING PROVIDERS DURING ENCOUNTER: 0 [place] ASSISTANT MANAGER documented in this encounter Plan of Treatment Not on file documented as of this encounter Visit Diagnoses Diagnosis Pain Neuropathic documented in this encounter
--- OUTSIDE RECORDS SUMMARY | 2023-04-16 11:35 | XMS_ITS | Continuity of Care Document ---
Author Name Unknown Organization [facility] Address [address] [place] [address] Phone Care Team Providers Care Plasterer Spot Name Role Phone Skip Mata MD Unavailable Unavailable Allergies, Adverse Reactions, Alerts Substance Reaction Status Criticality No Known Allergies Active No Inform ation Medications Medication Instructions Dosage Effective Dates (start - stop) Status Comments gabapentin 800 mg tablet take 1 tablet by oral route 4 times every day 800 MG - Active Cymbalta 30 mg capsule,delayed release take 3 capsule by oral route every day 90 MG - Active Cymbalta 20 mg capsule,delayed release take 1 capsule by oral route every day 20 MG - Active lisinopril 20 mg tablet take 1 tablet by oral route 2 times every day 20 MG - Active Procedures Procedure Date New Pt Eval 45 Min Advance Directives Directive Yes / No Effective Date File Name Life Support Not Answered N/A N/A Other Directive No N/A N/A WARNING:The information contained in this section is historical and is provided for information only and does not constitute a legal document or any assurance that the information is still accurate. Please verify the information with the boland of the legal document before using it for clinical purposes. Encounters Encounter Description Practice Location Reason(s) For Visit Diagnoses Date Provider Providers Copied on Encounter New Pt Eval 45 Min [facility], [address], [place], [place], [id number], tel:[phone] [facility] bilateral foot pain (chief complaint) bilateral arm pain (chief complaint) Body mass index (BMI) 36.0-36.9, adultDrug-induced polyneuropathyPain in unspecified footPain in unspecified hand [address] Esper[address] Valdivia. [address], [place], [id number], [place]. tel:[phone] Referring Provider: Jarek Stern, [address], [place], [address]. tel:[phone] Family History Family Member Type Diagnosis Age At Onset No Information Payers Payer name Insurance type Covered alliance party ID Beatriz frazier(s) [facility] [id number] Social History Type Description Quantity Date Captured Comments Alcohol Use Details No Caffeine Use Details coffee and soda 1 cup per day 2021 Tobacco Use Status No Information Smoking Status Never smoker Non-Smoking Tobacco Use Details : No Details Available : No Details Available Sex Female Vital Signs Date / Time: Height Weight BMI Pulse Rate Blood Pressure Temperature Respiratory Rate Body Surface Area Head Circumference Head Circ. Percentile Wt./Bishnu. Percentile BMI percentile Pulse Ox Inhaled Ox 10:17 AM 65.00 in 99.246 kg (218.80 lbs) 36.4 1 kg/m eter (2) 86 /min 126/89 mm[Hg] 97.90 F 2.13 meter(2) 98 % Chief Complaint And Reason For Visit From encounter dated '09/13/2021 10:00'. bilateral foot pain (chief complaint). Description: Location: bilateral foot. The pain is dull, piercing and sharp. The pain is aggravated by bending, walking and standing. The pain is relieved by massage and rest. bilateral arm pain (chief complaint). Description: Location: bilateral hand. The pain is dull, piercing and sharp. The pain is aggravated by bending, lifting, movement and pushing. The pain is relieved by pain/RX meds. Reason For Referral Reason For Referral No Information Plan Of Treatment Date Type Action Status Goal Lifestyle education regardin g diet completed Goal Lifestyle education regardin g diet completed Referral Ordered: Behavioral Health (related to Drug-induced polyneuropathy) ordered Referral Referred To: Physical Therapy Ordered: Physical Therapy ordered Referral Referred To: lumbar sympathetic nerve block Ordered: lumbar sympathetic nerve block ordered Referral Ordered: Referrals: Behavioral Health. Evaluate and treat ordered History Of Present Illness Encounter Date Complaint History Of Prese nt Illness bilateral foot pain Location: bi lateral foot. The pain is dull, piercing and sharp. The pain is aggravated by bending, walking and standing. The pain is relieved by massage and rest. bilateral arm pain Location: duyen ateral hand. The pain is dull, piercing and sharp. The pain is aggravated by bending, lifting, movement and pushing. The pain is relieved by pain/RX meds. Functional Status Date Functional Assessmen t Pain Score 4/10 Instructions Date Instruction Additional Infor rose -Schedule Bilateral Lumbar Sympathetic Nerve Block -Schedule physical therapy evaluation -Schedule behavioral health evaluation -Consider the spinal cord stimulator device, literature provided today-No medications prescribed today -Follow up with provider in 4 weeks after injection Related to Drug-induced polyneuropathy Same plan of care as statement for above diagnosis, no changes Related to Pain in unspecified foot Same plan of care as statement for above diagnosis, no changes Related to Pain in unspecified hand Lifestyle education regarding di et Related to Body mass index [BMI] 36.0-36.9, adult Lifestyle education regarding di et Related to Body mass index [BMI] 36.0-36.9, adult Assessments Type Assessment Date assessment Body mass index (BMI) 36.0-36.9, adult assessment Drug-induced polyneuropathy assessment Pain in unspecified foot 2021 assessment Pain in unspecified hand 2021 Mental Status Date Cognitive Assessment Orientation - [place] ed to time, place, person, situation. Patient Care Teams Name Effective Dates (start - stop) Status Members No Information
--- OUTSIDE RECORDS SUMMARY | 2023-04-16 11:35 | XMS_ITS | Encounter Summary ---
Author Name Unknown Organization [facility] Address [address] [place] [address] Care Team Providers Care Procedures Nurse Name Role Phone Unavailable Primary Care Provider Unavailabl e Reason for Visit * Auth/Cert (Routine) Specialty Diagnoses / Procedures Referred By Contac t Referred To Contact Diagnoses Polyneuropathy, unspecified intractable pain Procedures NV IMPL NEUROSTIM SAC NRV W IMG NV IMPL NEUROSTIM ELEC PERC EPI NEVRO TRIAL STIMULATOR SPINAL CORD Referral ID Status Reason Start Date Expiration Date Visits Re quested Visits Authorized [id number] 1 1 Encounter Details Date Type Department Care Team (Latest Contact Info) Description 05/30/2022 6:27 AM CUFF SETTER OVERLOCK - 05/30/2022 11:33 AM CUFF SETTER [facility] Hospital Encounter Outpatient Procedure Center in [place], [place] [address] [place] [address] Ciaran Escobar M.D. [address] [place] [address] Discharge Disposition: Home or Self Care Social [...] often do you attend chur ch or zoroastrianism services? 1 to 4 times per year [...] and heating? Not hard at all 12/17/2021 [facility] - Occupational [...] Sign Reading Time Taken Comments Blood Pressure 98/75 05/30/2022 11:00 AM CUFF SETTER [facility]LOCK Pulse 62 05/30/2022 11:15 AM CUFF SETTER OVERLOCK Temperature 36.6 ??C (97.9 ??F) 05/30/2022 9:01 AM CS T Respiratory Rate 16 05/30/2022 11:15 AM CUFF SETTER [facility]LOCK Oxygen Saturation 98% 05/30/2022 11:15 AM CUFF SETTER OVERLOCK Inhaled Oxygen Concentration - - Weight 92.3 kg (203 lb 7.8 oz) 05/30/2022 7:08 A M CUFF SETTER OVERLOCK Height - - Body Mass Index 32.82 01/14/2018 7:50 AM CDT documented in this encounter Discharge Instructions * Discharge Instructions* Ciaran Escobar M.D. - 05/30/2022 7:57 AM CUFF SETTER [facility]LOCK Neuromodulation Trial Instructions Activity Restrictions Refrain from [...] ???Anesthesia PainOutpatient Adult Doctor on-call?? via the [facility] Advertising Sales Consultant (phone: [phone]) Pain Control Continue prior chronic pain medication regimen as scheduled, unless instructed to make changes Avoid initiation of new pain medications during the trial Use ice packs 20 minutes on/off as needed for procedural pain Follow-Up Return to Pain Clinic on Post-Procedure Day 1 for check-up and Day 5-7 for trial discontinuation (specific dates will be provided to you by your surgical team) SETTER OVERLOCK documented in this encounter Medications at Time [...] Peripheral-Chemotherapy Induced Post-op Diagnosis Neuropathy Peripheral A behavioral health assistant actively participated and was necessary for one [...] Dose Route Action Action by 05/30/2022 0812 CUFF SETTER OVERLOCK ceFAZolin injection 2,000 mg (ANCEF) 2 g intravenous Given Moise Robins 05/30/2022 0821 CUFF SETTER [facility]LOCK PHAjmhpvqba-xyzchyavm-cmpotjzentn 0.25%-0.5%-1:200,000 injection (ROBERT 2 alternative) 11 mL subcutaneous Given Vandana Christine 05/30/2022 0847 CUFF SETTER OVERLOCK dexmedeTOMIDine 4 mcg/mL in NaCl 0.9% 100 mL infusion (PRECEDEX) 0 mcg/kg/hr intravenous Stopped Moise Robins 05/30/2022 0822 CUFF SETTER OVERLOCK dexmedeTOMIDine 4 mcg/mL in NaCl 0.9% 100 mL infusion (PRECEDEX) 0.5 mcg/kg/hr intravenous Rate/Dose Change Moise Robins 05/30/2022 0807 CUFF SETTER OVERLOCK dexmedeTOMIDine 4 mcg/mL in NaCl 0.9% 100 mL infusion (PRECEDEX) 0.4 mcg/kg/hr intravenous New Bag Moise Robins M.D. SETTER OVERLOCK documented in this encounter Plan of Treatment Not on file documented as of this encounter Procedures Procedure Name Priority Date/Time Associated Diagnosis Comments FL FLUORO LESS THAN 1 HOUR RAD - Routine (most inpatients and all outpatients) 05/30/2022 8:51 AM CUFF SETTER OVERLOCK TRIAL STIMULATOR SPINAL CORD 05/30/2022 7:40 AM CUFF SETTER OVERLOCK Neuropathy Peripheral Case Notes Service: BendelPost-op orders: Family: , JeffRx: noneD/C plans: homegoingAssistive Devices: noneOther needs: documented in this encounter Results * FL Fluoro Less Than 1 Hour (05/30/2022 8:51 AM CUFF SETTER OVERLOCK) Narrative [id number] - 05/30/2022 8:51 AM CUFF SETTER OVERLOCK This exam does not require a radiologist review or interpretation. Please refer to the patient's medical record on this date for clinical details. Sumi Christine M.D. IMG FLUOROSCOPY PRO CEDURES [id number] NA documented in this encounter Visit Diagnoses [...] last 6 hours Given 05/30/2022 10:42 AM CUFF SETTER OVERLOCK 1,000 mg dexmedeTOMIDine 4 mcg/mL in NaCl 0.9% 100 [...] care unit Rate/Dose Change 05/30/2022 8:22 AM CUFF SETTER OVERLOCK 0.5 mcg/kg/hr 11.538 mL/hr New Bag 05/30/2022 8:07 AM CUFF SETTER OVERLOCK 0.4 mcg/kg/hr 9.23 mL/hr lactated ringers intravenous, Continuous Infusion: Per Instructions PRN, Starting on Selena 05/30/22 at 0757, Anesthesia Intra-op New Bag 05/30/2022 10:15 AM CUFF SETTER OVERLOCK Continued from OR 05/30/2022 9:10 AM CUFF SETTER OVERLOCK New Bag 05/30/2022 7:57 AM CUFF SETTER OVERLOCK metoprolol tablet 12.5 mg (LOPRESSOR) 12.5 mg, [...] Recently Administered Medications Times are shown in CUFF SETTER OVERLOCK. 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
== END 2023-04-15 08:46 | disposition home or self-care (01) ==
LOC: NFLDREF 04-16 11:31
PROVIDERS: PCP Physician Assistant Medical; Referring Provider Physician Assistant Medical; Visit Provider Physician Assistant Medical
DX: E78.5 Hyperlipidemia, unspecified (principal); I10 Essential (primary) hypertension; Z13.29 Encounter for screening for other suspected endocrine disorder
CPT/HCPCS: 80053; 80061; 84443

== ENCOUNTER 2025-01-07 09:28 | Outpatient (CLI) | payer OTHER, SELFPAY | END 2025-01-07 09:29 | disposition home or self-care (01) | PROVIDERS: PCP Physician Assistant Medical; Visit Provider Physician Assistant Medical | DX: Z00.00 Encounter for general adult medical examination without abnormal findings (principal); E55.9 Vitamin D deficiency, unspecified | CPT/HCPCS: 80053; 80061; 82306; 82607; 84439; 84443 ==